=== PATIENT | female | born 1945 | race Hispanic/Latino ===

== ENCOUNTER 2017-10-11 06:27 | Inpatient (IN) | payer MEDICARE ==
[2017-10-11] MEDS ORDERED: PROVENTIL IH ONE ×2 (08:02→08:03)
[2017-10-11] MEDS ORDERED: ATROVENT IH ONE (08:02)
[2017-10-11 08:05] LABS: Basophils % (Auto) 0.7 % (0.0-1.8); Eosinophils % (Auto) 1.1 % (0.0-4.3); Hemoglobin 9.1 gm/dl (10.1-14.3); Mean Corpuscular HGB Conc 33 % (30-34); Mean Corpuscular Volume 79 fl (79-97); Platelet Count 132 K/mm3 (140-440); Red Blood Count 3.53 M/mm3 (3.65-5.03); Red Cell Distribution Width 16.1 % (13.2-15.2); White Blood Count 8.4 K/mm3 (4.5-11.0)
[2017-10-11 08:08] LABS: Mean Corpuscular Hemoglobin 26 pg (28-32)
[2017-10-11 08:15] LABS: INR 0.99 (0.87-1.13)
[2017-10-11 08:16] LABS: Partial Thromboplastin Time 24.1 Sec. (24.2-36.6)
[2017-10-11 08:20] LABS: Albumin 2.7 g/dL (3.9-5); Albumin/Globulin Ratio 0.9 %; Bilirubin,Total 0.3 mg/dL (0.1-1.2); Calcium 7.9 mg/dL (8.4-10.2); Chloride 99.3 mmol/L (98-107); Potassium 4.7 mmol/L (3.6-5.0); Total Protein 5.7 g/dL (6.3-8.2)
[2017-10-11] MEDS ORDERED: MAGNESIUM SULFATE 2GM/50ML 2 GM/50 ML BAG IV ONE (08:21)
--- NOTE | 2017-10-11 08:26 | XRay Report ---
AP CHEST: HISTORY: Short of breath Compared to 09/23/17. CABG changes are again noted. Borderline heart size and pulmonary vascularity are unchanged. The lungs are clear. The bony structures are grossly intact. IMPRESSION: No acute cardiopulmonary process. No change since 09/23/17.
[2017-10-11 08:46] LABS: Creatine Kinase MB 1.6 ng/mL (0.0-4.0)
--- NOTE | 2017-10-11 10:01 | Emergency Department Report ---
ED Shortness of Breath HPI - General Chief Complaint: Dyspnea/Respdistress Stated Complaint: LEENA Time Seen by Provider: 10/11/17 07:41 Source: patient, family, old records reviewed Mode of arrival: Wheelchair Limitations: Physical Limitation - History of Present Illness Initial Comments: 72-year-old female with a past medical history COPD dependent on 2 L of oxygen, asthma, diabetes, CHF, hypertension, CAD with history of CABG and stents presents to the hospital complaints of shortness of breath that acutely worsened at 5 AM. Patient has had generalized weakness and fatigue for several days. Occasional dry cough reported without fever. Patient had intermittent left-sided chest pain without aggravating or alleviating factors. the numbness or edema reported. Previous medical records reviewed. Patient was admitted here September 23 until September 27 for acute COPD exacerbation. She had elevated d-dimer but had a negative V/Q exam. Patient states she has been compliant with her medication. Echo performed 09/23/2017 shows EF of 55-60% with LVH and mild evidence of pulmonary hypertension - Related Data Home Medications Medication Instructions Recorded Confirmed Last Taken Insulin Glargine,Hum.rec.anlog 15 units SQ QHS 09/23/15 09/23/17 11/13/15 22:00 [Lantus Solostar] 7 units Carvedilol 25 mg PO Q12HR 09/23/17 09/23/17 Unknown Furosemide [Lasix TAB] 40 mg PO BID 09/23/17 09/23/17 Unknown Insulin Glargine [Lantus VIAL] 15 unit SC QAM 09/23/17 09/23/17 Unknown Lovastatin [Altoprev] 40 mg PO QPM 09/23/17 09/23/17 Unknown Previous Rx's Medication Instructions Recorded Last Taken Type ALBUTEROL NEB's [Proventil 0.083% 2.5 mg IH Q3HRT PRN #30 day 09/27/17 Unknown Rx NEBS] ALPRAZolam [Xanax TAB] 0.25 mg PO Q12HR PRN #30 tablet 09/27/17 Unknown Rx Acetaminophen [Acetaminophen TAB] 325 mg PO Q4H PRN #30 tablet 09/27/17 Unknown Rx Arformoterol Nebu [Brovana Nebu] 15 mcg IH Q12HRT #30 day 09/27/17 Unknown Rx Aspirin 81 mg PO QDAY #30 tab.chew 09/27/17 Unknown Rx Budesonide [Pulmicort Respules] 0.5 mg IH Q12HRT #30 nebu 09/27/17 Unknown Rx Clopidogrel [Plavix] 75 mg PO QDAY #30 tablet 09/27/17 Unknown Rx HYDROcodone/APAP 5-325 [[place] 1 each PO Q4H PRN #30 tablet 09/27/17 Unknown Rx 5-325 mg TAB] ISOSORBIDE MONOnitrate [Imdur ER] 30 mg PO DAILY #30 09/27/17 Unknown Rx Levofloxacin [Levaquin TAB] 750 mg PO Q48H #4 dose 09/27/17 Unknown Rx predniSONE [Deltasone] 1 dose PO QDAY #30 day 09/27/17 Unknown Rx Allergies Allergy/AdvReac Type Severity Reaction Status Date / Time atorvastatin calcium AdvReac Unknown Verified 09/23/17 18:55 [From Lipitor] ofloxacin [From Floxin] AdvReac Unknown Verified 09/23/17 18:55 ED Review of Systems ROS: Stated complaint: LEENA Other details as noted in HPI Comment: All other systems reviewed and negative Other: Constitutional: No fevers chills Eyes: No eye pain visual changes ENT: No ear pain or throat pain Neck: Denies pain Respiratory: As per HPI Cardiovascular: Denies chest pain, palpitations, syncope GI: Denies abdominal pain, nausea, vomiting, diarrhea, : Denies dysuria Musculoskeletal: Denies back pain, joint swelling Skin: Denies rash, lesions, erythema Neurologic: Denies headache, numbness, weakness Psychiatric: Denies suicidal ideation, hallucinations ED Past Medical Hx - Past Medical History Previous Medical History?: Yes Hx Hypertension: Yes (FOR 15 YRS, DR. Rodrick LEE- PCP) Hx Heart Attack/AMI: Yes (IN 1996and 08/2017 stend *2) Hx Diabetes: Yes (FOR 20+ YRS) Hx Asthma: Yes (NO INHALERS) Hx HIV: No - Surgical History Past Surgical History?: Yes Hx Open Heart Surgery: Yes (CABG [place] 1996) Hx Breast Surgery: Yes (LEFT BREAST STEREOTACTIC BX 09-08-15) - Social History Smoking Status: Never Smoker Substance Use Type: None - Medications Home Medications: Home Medications Medication Instructions Recorded Confirmed Last Taken Type Insulin Glargine,Hum.rec.anlog 15 units SQ QHS 09/23/15 09/23/17 11/13/15 22:00 History [Lantus Solostar] 7 units Carvedilol 25 mg PO Q12HR 09/23/17 09/23/17 Unknown History Furosemide [Lasix TAB] 40 mg PO BID 09/23/17 09/23/17 Unknown History Insulin Glargine [Lantus VIAL] 15 unit SC QAM 09/23/17 09/23/17 Unknown History Lovastatin [Altoprev] 40 mg PO QPM 09/23/17 09/23/17 Unknown History ALBUTEROL NEB's [Proventil 0.083% 2.5 mg IH Q3HRT PRN #30 day 09/27/17 Unknown Rx NEBS] ALPRAZolam [Xanax TAB] 0.25 mg PO Q12HR PRN #30 tablet 09/27/17 Unknown Rx Acetaminophen [Acetaminophen TAB] 325 mg PO Q4H PRN #30 tablet 09/27/17 Unknown Rx Arformoterol Nebu [Brovana Nebu] 15 mcg IH Q12HRT #30 day 09/27/17 Unknown Rx Aspirin 81 mg PO QDAY #30 tab.chew 09/27/17 Unknown Rx Budesonide [Pulmicort Respules] 0.5 mg IH Q12HRT #30 nebu 09/27/17 Unknown Rx Clopidogrel [Plavix] 75 mg PO QDAY #30 tablet 09/27/17 Unknown Rx HYDROcodone/APAP 5-325 [[place] 1 each PO Q4H PRN #30 tablet 09/27/17 Unknown Rx 5-325 mg TAB] ISOSORBIDE MONOnitrate [Imdur ER] 30 mg PO DAILY #30 09/27/17 09/23/17 Unknown Rx Levofloxacin [Levaquin TAB] 750 mg PO Q48H #4 dose 09/27/17 Unknown Rx predniSONE [Deltasone] 1 dose PO QDAY #30 day 09/27/17 Unknown Rx ED Physical Exam - General Limitations: Physical Limitation - Other Other exam information: General: No limitations, patient is alert in no acute distress Head exam: Atraumatic, normocephalic Eyes exam: Normal appearance ENT: Moist mucous membrane, normal oropharynx Neck exam: Normal inspection, full range of motion, no meningismus nontender Respiratory exam: Tachypnea, accessory muscle use, diminished breath sounds without crackles or wheezing Cardiovascular: Normal rate and rhythm Abdomen: Soft, nondistended, and nontender, with normal bowel sounds, no rebound, or guarding Extremity: Full range of motion normal inspection no deformity, no calf tenderness or edema Back: Normal Inspection, full range of motion, no tenderness Neurologic: Alert, oriented x3, cranial nerves intact, no motor or sensory deficit Psychiatric: normal affect, normal mood Skin: Warm, dry, intact ED Course Vital Signs 10/11/17 10/11/17 06:45 09:29 Temperature 99.4 F Pulse Rate 75 Respiratory 22 22 Rate Blood Pressure 114/72 O2 Sat by Pulse 99 96 Oximetry ED Medical Decision Making - Lab Data Result diagrams: 10/11/17 07:45 10/11/17 07:45 Lab Results 10/11/17 10/11/17 10/11/17 Range/Units 07:45 07:45 07:45 WBC 8.4 (4.5-11.0) K/mm3 RBC 3.53 L (3.65-5.03) M/mm3 Hgb 9.1 L (10.1-14.3) gm/dl Hct 28.0 L (30.3-42.9) % MCV 79 (79-97) fl MCH 26 L (28-32) pg MCHC 33 (30-34) % RDW 16.1 H (13.2-15.2) % Plt Count 132 L (140-440) K/mm3 Lymph % (Auto) 5.6 L (13.4-35.0) % [place] % (Auto) 6.4 (0.0-7.3) % Eos % (Auto) 1.1 (0.0-4.3) % Baso % (Auto) 0.7 (0.0-1.8) % Lymph # 0.5 L (1.2-5.4) K/mm3 [place] # 0.5 (0.0-0.8) K/mm3 Eos # 0.1 (0.0-0.4) K/mm3 Baso # 0.1 (0.0-0.1) K/mm3 Seg Neutrophils % 86.2 H (40.0-70.0) % Seg Neutrophils # 7.2 (1.8-7.7) K/mm3 PT 13.6 (12.2-14.9) Sec. INR 0.99 (0.87-1.13) APTT 24.1 L (24.2-36.6) Sec. Sodium 140 (137-145) mmol/L Potassium 4.7 (3.6-5.0) mmol/L Chloride 99.3 (98-107) mmol/L Carbon Dioxide 26 (22-30) mmol/L Anion Gap 19 mmol/L BUN 24 H (7-17) mg/dL Creatinine 1.6 H (0.7-1.2) mg/dL Estimated GFR 32 ml/min BUN/Creatinine Ratio 15 % Glucose 228 H (65-100) mg/dL Calcium 7.9 L (8.4-10.2) mg/dL Total Bilirubin 0.30 (0.1-1.2) mg/dL AST 10 (5-40) units/L ALT 9 (7-56) units/L Alkaline Phosphatase 110 (35-129) units/L Total Creatine Kinase (30-135) units/L CK-MB (CK-2) (0.0-4.0) ng/mL CK-MB (CK-2) Rel Index (0-4) Troponin T 0.031 H (0.00-0.029) ng/mL NT-Pro-B Natriuret Pep (0-900) pg/mL Total Protein 5.7 L (6.3-8.2) g/dL Albumin 2.7 L (3.9-5) g/dL Albumin/Globulin Ratio 0.9 % Triglycerides 139 (2-149) mg/dL Cholesterol 166 (50-199) mg/dL LDL Cholesterol Direct 101 (50-130) mg/dL HDL Cholesterol 38 L (40-59) mg/dL Cholesterol/HDL Ratio 4.36 % 10/11/17 10/11/17 Range/Units 07:45 07:45 WBC (4.5-11.0) K/mm3 RBC (3.65-5.03) M/mm3 Hgb (10.1-14.3) gm/dl Hct (30.3-42.9) % MCV (79-97) fl MCH (28-32) pg MCHC (30-34) % RDW (13.2-15.2) % Plt Count (140-440) K/mm3 Lymph % (Auto) (13.4-35.0) % [place] % (Auto) (0.0-7.3) % Eos % (Auto) (0.0-4.3) % Baso % (Auto) (0.0-1.8) % Lymph # (1.2-5.4) K/mm3 [place] # (0.0-0.8) K/mm3 Eos # (0.0-0.4) K/mm3 Baso # (0.0-0.1) K/mm3 Seg Neutrophils % (40.0-70.0) % Seg Neutrophils # (1.8-7.7) K/mm3 PT (12.2-14.9) Sec. INR (0.87-1.13) APTT (24.2-36.6) Sec. Sodium (137-145) mmol/L Potassium (3.6-5.0) mmol/L Chloride (98-107) mmol/L Carbon Dioxide (22-30) mmol/L Anion Gap mmol/L BUN (7-17) mg/dL Creatinine (0.7-1.2) mg/dL Estimated GFR ml/min BUN/Creatinine Ratio % Glucose (65-100) mg/dL Calcium (8.4-10.2) mg/dL Total Bilirubin (0.1-1.2) mg/dL AST (5-40) units/L ALT (7-56) units/L Alkaline Phosphatase (35-129) units/L Total Creatine Kinase 34 (30-135) units/L CK-MB (CK-2) 1.6 (0.0-4.0) ng/mL CK-MB (CK-2) Rel Index 4.7 H (0-4) Troponin T (0.00-0.029) ng/mL NT-Pro-B Natriuret Pep 48334 H (0-900) pg/mL Total Protein (6.3-8.2) g/dL Albumin (3.9-5) g/dL Albumin/Globulin Ratio % Triglycerides (2-149) mg/dL Cholesterol (50-199) mg/dL LDL Cholesterol Direct (50-130) mg/dL HDL Cholesterol (40-59) mg/dL Cholesterol/HDL Ratio % - EKG Data -: EKG Interpreted by Me EKG shows normal: sinus rhythm, axis (53), QRS complexes (92), ST-T waves (lat t wave inv) Rate: normal (69) - EKG Data When compared to previous EKG there are: changes noted (compared to 09/23/17 ant t waves now improved) - Radiology Data Radiology results: report reviewed (cxr: naf compared to 09/23/17) - Medical Decision Making Patient would be admitted to the hospital for further treatment of acute COPD exacerbation. Creatinine stable. Troponin mildly elevated today. - Differential Diagnosis CHF, PE, bronchitis, pneumonia, unstable angina, COPD, asthma Critical Care Time: No Critical care attestation.: If time is entered above; I have spent that time in minutes in the direct care of this critically ill patient, excluding procedure time. ED Disposition Clinical Impression: COPD exacerbation, Chronic renal insufficiency, Oxygen dependent, Hx of CABG, Hx of heart artery stent, Elevated brain natriuretic peptide (BNP) level, Elevated troponin Disposition: DC09 OP ADMIT IP TO THIS HOSP Is pt being admited?: Yes Condition: Stable Time of Disposition: 10:02 (Ion/hosp/Dr Vidal)
--- NOTE | 2017-10-11 10:42 | History and Physical Report ---
<CHRISTINE REEDER - Last Filed: 10/11/17 15:09> History of Present Illness Date of examination: 10/11/17 Date of admission: 10/11/2017 Chief complaint: Shortness of breath History of present illness: Patient is a 72-year-old female with a past medical history COPD dependent on 2 L of oxygen, asthma, diabetes, CHF, hypertension, CAD with history of CABG and stents presents to the Emergency Department complaints of shortness of breath. Until 5 days ago patient was at her normal baseline state of health since then patient has had generalized weakness and fatigue for several days.Patient developed difficulty of breathing yesterday and she has had progressive worsening of shortness of breath. This morning around 5:Am while going to the bathroom, shortly thereafter, she felt like she could not catch her breath and got worried and her daughter brought her to the Emergency Department. Patient denies she has had no fevers, chills, or night sweats. No hx of recurrent pneumonia. He has no sick contact, TB exposure. Patient noncompliance with steroid and Lasix. Past History Past Medical History: CAD (CAD with history of CABG and stents), COPD ( dependent on 2 L of oxygen, ), diabetes, heart failure, hypertension, other ( asthma, ) Past Surgical History: No surgical history, Other Social history: denies: smoking, alcohol abuse Family history: hypertension Medications and Allergies Allergies Allergy/AdvReac Type Severity Reaction Status Date / Time atorvastatin calcium AdvReac Unknown Verified 09/23/17 18:55 [From Lipitor] ofloxacin [From Floxin] AdvReac Unknown Verified 09/23/17 18:55 Home Medications Medication Instructions Recorded Confirmed Last Taken Type Insulin Glargine,Hum.rec.anlog 15 units SQ QHS 09/23/15 10/11/17 11/13/15 22:00 History [Lantus Solostar] 7 units Carvedilol 25 mg PO Q12HR 09/23/17 10/11/17 Unknown History Furosemide [Lasix TAB] 40 mg PO BID 09/23/17 10/11/17 Unknown History Lovastatin [Altoprev] 40 mg PO QPM 09/23/17 10/11/17 Unknown History ALBUTEROL NEB's [Proventil 0.083% 2.5 mg IH Q3HRT PRN #30 day 09/27/17 10/11/17 Unknown Rx NEBS] ALPRAZolam [Xanax TAB] 0.25 mg PO Q12HR PRN #30 tablet 09/27/17 10/11/17 Unknown Rx Aspirin 81 mg PO QDAY #30 tab.chew 09/27/17 10/11/17 Unknown Rx Clopidogrel [Plavix] 75 mg PO QDAY #30 tablet 09/27/17 10/11/17 Unknown Rx HYDROcodone/APAP 5-325 [[place] 1 each PO Q4H PRN #30 tablet 09/27/17 10/11/17 Unknown Rx 5-325 mg TAB] ISOSORBIDE MONOnitrate [Imdur ER] 30 mg PO DAILY #30 09/27/17 10/11/17 Unknown Rx Active Meds: Active Medications Albuterol/Ipratropium (Duoneb *Not For Prn Use*) 1 ampul IH Q6HRT RIRI Enoxaparin Sodium (Lovenox) 40 mg SUB-Q QDAY RIRI Methylprednisolone Sodium Succinate (Solu-Medrol) 80 mg IV Q8HR RIRI Review of Systems Constitutional: fatigue, weakness, malaise, no weight loss, no weight gain, no fever, no chills Ears, nose, mouth and throat: no nasal congestion, no nasal discharge, no sinus pressure Breasts: no swelling, no mass Cardiovascular: dyspnea on exertion, no syncope, no lightheadedness, no shortness of breath Respiratory: shortness of breath, dyspnea on exertion, no excessive sputum, no hemoptysis Gastrointestinal: no constipation, no change in bowel habits, no hematemesis Genitourinary Female: no incomplete emptying, no urge incontinence, no mixed incontinence Musculoskeletal: no neck pain, no shooting arm pain, no low back pain Integumentary: no redness, no wounds, no jaundice Neurological: no seizures, no syncope, no ataxia Psychiatric: no hypersomnia, no change in appetite, no suicidal ideation Endocrine: no polyphagia, no polydipsia, no nocturia, no flushing Hematologic/Lymphatic: no easy bruising, no easy bleeding Allergic/Immunologic: no urticaria, no allergic rhinitis Exam - Constitutional Vitals: Temp Pulse Resp BP Pulse Ox 99.4 F 75 22 114/72 96 10/11/17 06:45 10/11/17 06:45 10/11/17 09:29 10/11/17 06:45 10/11/17 09:29 General appearance: Present: mild distress, other (alert but very lethargic) - EENT Eyes: Present: PERRL ENT: hearing intact - Neck Neck: Present: supple - Respiratory Respiratory effort: normal Respiratory: bilateral: wheezing - Cardiovascular Rhythm: regular Heart Sounds: Present: S1 & S2 - Abdominal General gastrointestinal: Present: soft, non-tender Results - Labs CBC & Chem 7: 10/11/17 07:45 10/11/17 07:45 Labs: Laboratory Last Values WBC 8.4 K/mm3 (4.5-11.0) 10/11/17 07:45 RBC 3.53 M/mm3 (3.65-5.03) L 10/11/17 07:45 Hgb 9.1 gm/dl (10.1-14.3) L 10/11/17 07:45 Hct 28.0 % (30.3-42.9) L 10/11/17 07:45 MCV 79 fl (79-97) 10/11/17 07:45 MCH 26 pg (28-32) L 10/11/17 07:45 MCHC 33 % (30-34) 10/11/17 07:45 RDW 16.1 % (13.2-15.2) H 10/11/17 07:45 Plt Count 132 K/mm3 (140-440) L 10/11/17 07:45 Lymph % (Auto) 5.6 % (13.4-35.0) L 10/11/17 07:45 [place] % (Auto) 6.4 % (0.0-7.3) 10/11/17 07:45 Eos % (Auto) 1.1 % (0.0-4.3) 10/11/17 07:45 Baso % (Auto) 0.7 % (0.0-1.8) 10/11/17 07:45 Lymph # 0.5 K/mm3 (1.2-5.4) L 10/11/17 07:45 [place] # 0.5 K/mm3 (0.0-0.8) 10/11/17 07:45 Eos # 0.1 K/mm3 (0.0-0.4) 10/11/17 07:45 Baso # 0.1 K/mm3 (0.0-0.1) 10/11/17 07:45 Seg Neutrophils % 86.2 % (40.0-70.0) H 10/11/17 07:45 Seg Neutrophils # 7.2 K/mm3 (1.8-7.7) 10/11/17 07:45 PT 13.6 Sec. (12.2-14.9) 10/11/17 07:45 INR 0.99 (0.87-1.13) 10/11/17 07:45 APTT 24.1 Sec. (24.2-36.6) L 10/11/17 07:45 Sodium 140 mmol/L (137-145) 10/11/17 07:45 Potassium 4.7 mmol/L (3.6-5.0) 10/11/17 07:45 Chloride 99.3 mmol/L (98-107) 10/11/17 07:45 Carbon Dioxide 26 mmol/L (22-30) 10/11/17 07:45 Anion Gap 19 mmol/L 10/11/17 07:45 BUN 24 mg/dL (7-17) H 10/11/17 07:45 Creatinine 1.6 mg/dL (0.7-1.2) H 10/11/17 07:45 Estimated GFR 32 ml/min 10/11/17 07:45 BUN/Creatinine Ratio 15 % 10/11/17 07:45 Glucose 228 mg/dL (65-100) H 10/11/17 07:45 Calcium 7.9 mg/dL (8.4-10.2) L 10/11/17 07:45 Total Bilirubin 0.30 mg/dL (0.1-1.2) 10/11/17 07:45 AST 10 units/L (5-40) 10/11/17 07:45 ALT 9 units/L (7-56) 10/11/17 07:45 Alkaline Phosphatase 110 units/L (35-129) 10/11/17 07:45 Total Creatine Kinase 34 units/L (30-135) 10/11/17 07:45 CK-MB (CK-2) 1.6 ng/mL (0.0-4.0) 10/11/17 07:45 CK-MB (CK-2) Rel Index 4.7 (0-4) H 10/11/17 07:45 Troponin T 0.031 ng/mL (0.00-0.029) H 10/11/17 07:45 NT-Pro-B Natriuret Pep 88932 pg/mL (0-900) H 10/11/17 07:45 Total Protein 5.7 g/dL (6.3-8.2) L 10/11/17 07:45 Albumin 2.7 g/dL (3.9-5) L 10/11/17 07:45 Albumin/Globulin Ratio 0.9 % 10/11/17 07:45 Triglycerides 139 mg/dL (2-149) 10/11/17 07:45 Cholesterol 166 mg/dL (50-199) 10/11/17 07:45 LDL Cholesterol Direct 101 mg/dL (50-130) 10/11/17 07:45 HDL Cholesterol 38 mg/dL (40-59) L 10/11/17 07:45 Cholesterol/HDL Ratio 4.36 % 10/11/17 07:45 - Imaging and Cardiology Chest x-ray: image reviewed ([email or web address]) Assessment and Plan Assessment and plan: Patient is a 72-year-old female with a past medical history COPD dependent on 2 L of oxygen, asthma, diabetes, CHF, hypertension, CAD with history of CABG and stents presents to the Emergency Department complaints of shortness of breath. Acute on chronic respiratory failure with hypoxia Patient oxygen saturation improved with 2LNC; currently SPO2 98%. No acute respiratory distress noted. Aggressive Nebulizers/Inhalers ABG when necessary Oxygen supplement Supportive care Elevated troponin Echocardiogram performed 09/23/2017 shows EF of 55-60% with LVH and mild evidence of pulmonary hypertension Closely monitor electrolytes Cardiology evaluation Acute COPD exacerbation Continue on Duoneb every 6 hours Started IV steroid Solumedrol Initiated empiric IV azithromycin Oxygen as necessary Hypertensive urgency Continue home antihypertensive medications Closely monitor blood pressure CKD Stage III Patient serum creatinine is 1.6; which is her baseline IV fluid hydration Repeat BMP Chronic anemia Stable at this time, transfusion related Closely monitor H&H Noncompliance Patient noncompliance with her steroid and Lasix. Counseled about the importance of adherence to medication and treatment Moderate malnutrition Nutrition consult DVT prophylaxis Heparin Advance Directives: Yes VTE prophylaxis?: Chemical Contraindication Mechanical VTE Prophylaxis: Treatment Not Indicated Plan of care discussed with patient/family: Yes <YENNI JEFFERSON Last Filed: 10/11/17 15:32> History of Present Illness Date of admission: 10/11/17 10:11 Medications and Allergies Active Meds: Active Medications Albuterol (Proventil) 2.5 mg IH Q4HRT PRN PRN Reason: Shortness Of Breath Albuterol/Ipratropium (Duoneb *Not For Prn Use*) 1 ampul IH Q6HRT RIRI Aspirin (Baby Aspirin) 81 mg PO QDAY RIRI Carvedilol (Coreg) 25 mg PO Q12HR RIRI Clopidogrel Bisulfate (Plavix) 75 mg PO QDAY RIRI Dextrose (D50w (25gm) Syringe) 50 ml IV PRN PRN PRN Reason: Hypoglycemia Enoxaparin Sodium (Lovenox) 30 mg SUB-Q QDAY RIRI Furosemide (Lasix) 40 mg PO BID [facility] Azithromycin 500 mg/ Sodium (Chloride) 250 mls @ 250 mls/hr IV Q24HR RIRI Sodium Chloride (Nacl 0.9% 1000 Ml) 1,000 mls @ 100 mls/hr IV DIRECT RIRI Sodium Chloride (Nacl 0.9% 1000 Ml) 1,000 mls @ 75 mls/hr IV DIRECT RIRI Insulin Aspart (Novolog) 0 units SUB-Q AC RIRI PRN Reason: Protocol Insulin Aspart (Novolog) 0 units SUB-Q QHS RIRI PRN Reason: Protocol Insulin Detemir (Levemir) 15 units SUB-Q QHS [facility] Isosorbide Mononitrate (Imdur) 30 mg PO DAILY [facility] Methylprednisolone Sodium Succinate (Solu-Medrol) 80 mg IV Q8H [facility] Miscellaneous Medication (Lovastatin [Altoprev]) 40 mg PO QPM [facility] Exam - Constitutional Vitals: Temp Pulse Resp BP Pulse Ox 98.6 F 75 20 125/60 99 10/11/17 14:00 10/11/17 14:00 10/11/17 14:00 10/11/17 14:00 10/11/17 14:00 Results - Labs CBC & Chem 7: 10/11/17 07:45 10/11/17 07:45 Labs: Laboratory Last Values WBC 8.4 K/mm3 (4.5-11.0) 10/11/17 07:45 RBC 3.53 M/mm3 (3.65-5.03) L 10/11/17 07:45 Hgb 9.1 gm/dl (10.1-14.3) L 10/11/17 07:45 Hct 28.0 % (30.3-42.9) L 10/11/17 07:45 MCV 79 fl (79-97) 10/11/17 07:45 MCH 26 pg (28-32) L 10/11/17 07:45 MCHC 33 % (30-34) 10/11/17 07:45 RDW 16.1 % (13.2-15.2) H 10/11/17 07:45 Plt Count 132 K/mm3 (140-440) L 10/11/17 07:45 Lymph % (Auto) 5.6 % (13.4-35.0) L 10/11/17 07:45 [place] % (Auto) 6.4 % (0.0-7.3) 10/11/17 07:45 Eos % (Auto) 1.1 % (0.0-4.3) 10/11/17 07:45 Baso % (Auto) 0.7 % (0.0-1.8) 10/11/17 07:45 Lymph # 0.5 K/mm3 (1.2-5.4) L 10/11/17 07:45 [place] # 0.5 K/mm3 (0.0-0.8) 10/11/17 07:45 Eos # 0.1 K/mm3 (0.0-0.4) 10/11/17 07:45 Baso # 0.1 K/mm3 (0.0-0.1) 10/11/17 07:45 Seg Neutrophils % 86.2 % (40.0-70.0) H 10/11/17 07:45 Seg Neutrophils # 7.2 K/mm3 (1.8-7.7) 10/11/17 07:45 PT 13.6 Sec. (12.2-14.9) 10/11/17 07:45 INR 0.99 (0.87-1.13) 10/11/17 07:45 APTT 24.1 Sec. (24.2-36.6) L 10/11/17 07:45 Sodium 140 mmol/L (137-145) 10/11/17 07:45 Potassium 4.7 mmol/L (3.6-5.0) 10/11/17 07:45 Chloride 99.3 mmol/L (98-107) 10/11/17 07:45 Carbon Dioxide 26 mmol/L (22-30) 10/11/17 07:45 Anion Gap 19 mmol/L 10/11/17 07:45 BUN 24 mg/dL (7-17) H 10/11/17 07:45 Creatinine 1.6 mg/dL (0.7-1.2) H 10/11/17 07:45 Estimated GFR 32 ml/min 10/11/17 07:45 BUN/Creatinine Ratio 15 % 10/11/17 07:45 Glucose 228 mg/dL (65-100) H 10/11/17 07:45 POC Glucose 351 (70-105) H 10/11/17 14:36 Calcium 7.9 mg/dL (8.4-10.2) L 10/11/17 07:45 Total Bilirubin 0.30 mg/dL (0.1-1.2) 10/11/17 07:45 AST 10 units/L (5-40) 10/11/17 07:45 ALT 9 units/L (7-56) 10/11/17 07:45 Alkaline Phosphatase 110 units/L (35-129) 10/11/17 07:45 Total Creatine Kinase 34 units/L (30-135) 10/11/17 07:45 CK-MB (CK-2) 1.6 ng/mL (0.0-4.0) 10/11/17 07:45 CK-MB (CK-2) Rel Index 4.7 (0-4) H 10/11/17 07:45 Troponin T 0.014 ng/mL (0.00-0.029) 10/11/17 13:08 NT-Pro-B Natriuret Pep 82692 pg/mL (0-900) H 10/11/17 07:45 Total Protein 5.7 g/dL (6.3-8.2) L 10/11/17 07:45 Albumin 2.7 g/dL (3.9-5) L 10/11/17 07:45 Albumin/Globulin Ratio 0.9 % 10/11/17 07:45 Triglycerides 139 mg/dL (2-149) 10/11/17 07:45 Cholesterol 166 mg/dL (50-199) 10/11/17 07:45 LDL Cholesterol Direct 101 mg/dL (50-130) 10/11/17 07:45 HDL Cholesterol 38 mg/dL (40-59) L 10/11/17 07:45 Cholesterol/HDL Ratio 4.36 % 10/11/17 07:45 Assessment and Plan Assessment and plan: I saw and evaluated the patient. I agree with the findings and the plan of care as documented in the Nurse Practitioner's~note, with the following corrections and additions. I spoke with patient daughter at bedside, she has not taking her lasix in 4 days also. She stopped the prednisone due to high blood sugars.
[2017-10-11] MEDS ORDERED: LOVENOX SUB-Q SCH (11:00)
[2017-10-11] MEDS ORDERED: NACL 0.9% 1000 ML 1,000 ML IV SCH (11:00)
--- NOTE | 2017-10-11 12:42 | Consultation ---
History of Present Illness Consult date: 10/11/17 Consult reason: shortness of breath History of present illness: 72 year old female presenting with worsening shortness of breath that started at 5 am this morning. Daughter states that patient has not been taking her steroids due to the fact that she is concerned about her blood sugar spiking too high. Patient also has not been taking the antibiotics prescribed to her. Patient denies chest pain. Patient on home O2 at home. Patient is compliant with her DAPT. Past History Past Medical History: anemia, CAD, COPD, diabetes, hypertension, hyperlipidemia , renal failure Past Surgical History: CABG Social history: smoking Medications and Allergies Allergies Allergy/AdvReac Type Severity Reaction Status Date / Time atorvastatin calcium AdvReac Unknown Verified 09/23/17 18:55 [From Lipitor] ofloxacin [From Floxin] AdvReac Unknown Verified 09/23/17 18:55 Home Medications Medication Instructions Recorded Confirmed Last Taken Type Insulin Glargine,Hum.rec.anlog 15 units SQ QHS 09/23/15 10/11/17 11/13/15 22:00 History [Lantus Solostar] 7 units Carvedilol 25 mg PO Q12HR 09/23/17 10/11/17 Unknown History Furosemide [Lasix TAB] 40 mg PO BID 09/23/17 10/11/17 Unknown History Lovastatin [Altoprev] 40 mg PO QPM 09/23/17 10/11/17 Unknown History ALBUTEROL NEB's [Proventil 0.083% 2.5 mg IH Q3HRT PRN #30 day 09/27/17 10/11/17 Unknown Rx NEBS] ALPRAZolam [Xanax TAB] 0.25 mg PO Q12HR PRN #30 tablet 09/27/17 10/11/17 Unknown Rx Aspirin 81 mg PO QDAY #30 tab.chew 09/27/17 10/11/17 Unknown Rx Clopidogrel [Plavix] 75 mg PO QDAY #30 tablet 09/27/17 10/11/17 Unknown Rx HYDROcodone/APAP 5-325 [[place] 1 each PO Q4H PRN #30 tablet 09/27/17 10/11/17 Unknown Rx 5-325 mg TAB] ISOSORBIDE MONOnitrate [Imdur ER] 30 mg PO DAILY #30 09/27/17 10/11/17 Unknown Rx Active Meds: Active Medications Albuterol/Ipratropium (Duoneb *Not For Prn Use*) 1 ampul IH Q6HRT [facility] Enoxaparin Sodium (Lovenox) 30 mg SUB-Q QDAY [facility] Azithromycin 500 mg/ Sodium (Chloride) 250 mls @ 250 mls/hr IV Q24HR [facility] Sodium Chloride (Nacl 0.9% 1000 Ml) 1,000 mls @ 100 mls/hr IV DIRECT [facility] Methylprednisolone Sodium Succinate (Solu-Medrol) 80 mg IV Q8HR [facility] Physical Examination Vital Signs Temp Pulse Resp BP Pulse Ox 99.4 F 75 22 114/72 99 10/11/17 06:45 10/11/17 06:45 10/11/17 06:45 10/11/17 06:45 10/11/17 06:45 General appearance: mild distress HEENT: Positive: Pallor Neck: Positive: neck supple. Negative: JVD/HJR Cardiac: Positive: Reg Rate and Rhythm Lungs: Positive: Decreased Breath Sounds, Wheezes Abdomen: Positive: Soft Extremities: Absent: edema Results 10/11/17 07:45 10/11/17 07:45 Cardiac Enzymes 10/11/17 10/11/17 10/11/17 Range/Units 07:45 07:45 07:45 WBC 8.4 (4.5-11.0) K/mm3 RBC 3.53 L (3.65-5.03) M/mm3 Hgb 9.1 L (10.1-14.3) gm/dl Hct 28.0 L (30.3-42.9) % MCV 79 (79-97) fl MCH 26 L (28-32) pg MCHC 33 (30-34) % RDW 16.1 H (13.2-15.2) % Plt Count 132 L (140-440) K/mm3 Lymph % (Auto) 5.6 L (13.4-35.0) % [place] % (Auto) 6.4 (0.0-7.3) % Eos % (Auto) 1.1 (0.0-4.3) % Baso % (Auto) 0.7 (0.0-1.8) % Lymph # 0.5 L (1.2-5.4) K/mm3 [place] # 0.5 (0.0-0.8) K/mm3 Eos # 0.1 (0.0-0.4) K/mm3 Baso # 0.1 (0.0-0.1) K/mm3 Seg Neutrophils % 86.2 H (40.0-70.0) % Seg Neutrophils # 7.2 (1.8-7.7) K/mm3 PT 13.6 (12.2-14.9) Sec. INR 0.99 (0.87-1.13) APTT 24.1 L (24.2-36.6) Sec. Sodium 140 (137-145) mmol/L Potassium 4.7 (3.6-5.0) mmol/L Chloride 99.3 (98-107) mmol/L Carbon Dioxide 26 (22-30) mmol/L Anion Gap 19 mmol/L BUN 24 H (7-17) mg/dL Creatinine 1.6 H (0.7-1.2) mg/dL Estimated GFR 32 ml/min BUN/Creatinine Ratio 15 % Glucose 228 H (65-100) mg/dL Calcium 7.9 L (8.4-10.2) mg/dL Total Bilirubin 0.30 (0.1-1.2) mg/dL AST 10 (5-40) units/L ALT 9 (7-56) units/L Alkaline Phosphatase 110 (35-129) units/L Total Creatine Kinase (30-135) units/L CK-MB (CK-2) (0.0-4.0) ng/mL CK-MB (CK-2) Rel Index (0-4) Troponin T 0.031 H (0.00-0.029) ng/mL NT-Pro-B Natriuret Pep (0-900) pg/mL Total Protein 5.7 L (6.3-8.2) g/dL Albumin 2.7 L (3.9-5) g/dL Albumin/Globulin Ratio 0.9 % Triglycerides 139 (2-149) mg/dL Cholesterol 166 (50-199) mg/dL LDL Cholesterol Direct 101 (50-130) mg/dL HDL Cholesterol 38 L (40-59) mg/dL Cholesterol/HDL Ratio 4.36 % 10/11/17 10/11/17 10/11/17 Range/Units 07:45 07:45 10:12 WBC (4.5-11.0) K/mm3 RBC (3.65-5.03) M/mm3 Hgb (10.1-14.3) gm/dl Hct (30.3-42.9) % MCV (79-97) fl MCH (28-32) pg MCHC (30-34) % RDW (13.2-15.2) % Plt Count (140-440) K/mm3 Lymph % (Auto) (13.4-35.0) % [place] % (Auto) (0.0-7.3) % Eos % (Auto) (0.0-4.3) % Baso % (Auto) (0.0-1.8) % Lymph # (1.2-5.4) K/mm3 [place] # (0.0-0.8) K/mm3 Eos # (0.0-0.4) K/mm3 Baso # (0.0-0.1) K/mm3 Seg Neutrophils % (40.0-70.0) % Seg Neutrophils # (1.8-7.7) K/mm3 PT (12.2-14.9) Sec. INR (0.87-1.13) APTT (24.2-36.6) Sec. Sodium (137-145) mmol/L Potassium (3.6-5.0) mmol/L Chloride (98-107) mmol/L Carbon Dioxide (22-30) mmol/L Anion Gap mmol/L BUN (7-17) mg/dL Creatinine (0.7-1.2) mg/dL Estimated GFR ml/min BUN/Creatinine Ratio % Glucose (65-100) mg/dL Calcium (8.4-10.2) mg/dL Total Bilirubin (0.1-1.2) mg/dL AST (5-40) units/L ALT (7-56) units/L Alkaline Phosphatase (35-129) units/L Total Creatine Kinase 34 (30-135) units/L CK-MB (CK-2) 1.6 (0.0-4.0) ng/mL CK-MB (CK-2) Rel Index 4.7 H (0-4) Troponin T 0.028 (0.00-0.029) ng/mL NT-Pro-B Natriuret Pep 48179 H (0-900) pg/mL Total Protein (6.3-8.2) g/dL Albumin (3.9-5) g/dL Albumin/Globulin Ratio % Triglycerides (2-149) mg/dL Cholesterol (50-199) mg/dL LDL Cholesterol Direct (50-130) mg/dL HDL Cholesterol (40-59) mg/dL Cholesterol/HDL Ratio % Coagulation 10/11/17 Range/Units 07:45 PT 13.6 (12.2-14.9) Sec. INR 0.99 (0.87-1.13) APTT 24.1 L (24.2-36.6) Sec. Lipids 10/11/17 Range/Units 07:45 Triglycerides 139 (2-149) mg/dL Cholesterol 166 (50-199) mg/dL HDL Cholesterol 38 L (40-59) mg/dL Cholesterol/HDL Ratio 4.36 % CBC 10/11/17 Range/Units 07:45 WBC 8.4 (4.5-11.0) K/mm3 RBC 3.53 L (3.65-5.03) M/mm3 Hgb 9.1 L (10.1-14.3) gm/dl Hct 28.0 L (30.3-42.9) % Plt Count 132 L (140-440) K/mm3 Lymph # 0.5 L (1.2-5.4) K/mm3 [place] # 0.5 (0.0-0.8) K/mm3 Eos # 0.1 (0.0-0.4) K/mm3 Baso # 0.1 (0.0-0.1) K/mm3 Comprehensive Metabolic Panel 10/11/17 Range/Units 07:45 Sodium 140 (137-145) mmol/L Potassium 4.7 (3.6-5.0) mmol/L Chloride 99.3 (98-107) mmol/L Carbon Dioxide 26 (22-30) mmol/L BUN 24 H (7-17) mg/dL Creatinine 1.6 H (0.7-1.2) mg/dL Glucose 228 H (65-100) mg/dL Calcium 7.9 L (8.4-10.2) mg/dL AST 10 (5-40) units/L ALT 9 (7-56) units/L Alkaline Phosphatase 110 (35-129) units/L Total Protein 5.7 L (6.3-8.2) g/dL Albumin 2.7 L (3.9-5) g/dL Assessment and Plan Acute Hypoxic respiratory failure Exam findings are consistent with COPD exacerbation Patient has chronically elevated NT-proBNP secondary to renal failure and RV strain (no pulmonary edema on CXR) Non-compliance with Abx, steroids and inhalers Hx of CAD with 3v CABG LHC at [facility] 08/2017: Patent left internal mammary artery graft to the LAD. Patent saphenous vein graft to diagonal branch of LAD. Occluded saphenous vein graft to the circumflex. s/p drug-eluting stent deployment for severe in-stent restenosis of the mid right coronary. s/p circumflex vessel drug-eluting stent to de alex mid circumflex stenosis. Left ventricular ejection fraction 50-55% on echocardiogram. Chronic renal failure Hypertension Diabetes mellitus Tobacco abuse Recommendations: Advised smoking cessation. Continue medical therapy for coronary artery disease including aspirin and Plavix therapy without interruption. Pulmonary evaluation and management
[2017-10-11] MEDS ORDERED: D50W (25GM) Syringe IV PRN (14:03)
[2017-10-11] MEDS ORDERED: PROVENTIL IH PRN (14:04)
[2017-10-11] MEDS ORDERED: NOVOLOG SUB-Q SCH ×2 (16:30→22:00)
[2017-10-11] MEDS: DUONEB *Not for PRN Use IH SCH ×2 (16:54→19:22)
[2017-10-11] MEDS ORDERED: NON-FORMULARY (Lovastatin [Altoprev] 40 MG) PO SCH (18:00)
[2017-10-11] MEDS ORDERED: D50W (25GM) Vial IV PRN (19:57)
[2017-10-11] MEDS ORDERED: NOVOLOG SUB-Q ONE (20:02)
[2017-10-11] MEDS ORDERED: NON-FORMULARY (Insulin Glargine,Hum.Rec.Anlog [Lantus Solostar] 15 UNITS) SQ SCH (22:00)
[2017-10-11] MEDS ORDERED: LEVEMIR SUB-Q SCH ×2 (22:00)
[2017-10-11] MEDS: COREG PO SCH (23:22)
[2017-10-11] MEDS: LASIX PO SCH (23:22)
[2017-10-11] MEDS: NOVOLOG SUB-Q SCH (23:23)
[2017-10-12] MEDS: NACL 0.9% 1000 ML 1,000 ML IV SCH ×2 (01:19→12:49)
[2017-10-12] MEDS: DUONEB *Not for PRN Use IH SCH ×4 (01:31→20:43)
[2017-10-12] MEDS: NOVOLOG SUB-Q SCH ×4 (08:05→21:19)
[2017-10-12] MEDS: LASIX PO SCH ×2 (09:13→21:20)
[2017-10-12] MEDS: IMDUR PO SCH (09:13)
[2017-10-12] MEDS: PLAVIX PO SCH (09:13)
[2017-10-12] MEDS: COREG PO SCH ×2 (09:14→21:19)
[2017-10-12] MEDS: LOVENOX SUB-Q SCH (09:16)
[2017-10-12] MEDS: BABY ASPIRIN PO SCH (09:16)
[2017-10-12] MEDS: LEVEMIR SUB-Q SCH ×2 (09:57→21:20)
[2017-10-12] MEDS ORDERED: LOVENOX SUB-Q SCH (10:00)
[2017-10-12] MEDS ORDERED: LEVAQUIN 750MG/150ML 750 MG/150 ML BAG IV SCH (10:00)
--- NOTE | 2017-10-12 11:48 | Progress Note ---
Assessment and Plan Acute Hypoxic respiratory failure Exam findings are consistent with COPD exacerbation Patient has chronically elevated NT-proBNP secondary to renal failure and RV strain (no pulmonary edema on CXR) Non-compliance with Abx, steroids and inhalers Hx of CAD with 3v CABG LHC at [facility] 08/2017: Patent left internal mammary artery graft to the LAD. Patent saphenous vein graft to diagonal branch of LAD. Occluded saphenous vein graft to the circumflex. s/p drug-eluting stent deployment for severe in-stent restenosis of the mid right coronary. s/p circumflex vessel drug-eluting stent to de alex mid circumflex stenosis. Left ventricular ejection fraction 50-55% on echocardiogram. Chronic renal failure Hypertension Diabetes mellitus Tobacco abuse Recommendations: Advised smoking cessation. Continue medical therapy for coronary artery disease including aspirin and Plavix therapy without interruption. Pulmonary evaluation and management Subjective Date of service: 10/12/17 Interval history: Continues to have dyspnea. No chest pain Objective Vital Signs Temp Pulse Pulse Resp Resp BP BP 10/12/17 09:14 75 150/46 10/12/17 09:13 75 150/46 10/12/17 08:14 77 10/12/17 08:13 98.0 F 70 18 142/37 10/12/17 06:00 85 10/12/17 03:47 97.8 F 70 18 159/47 10/12/17 01:42 63 18 10/12/17 01:31 60 18 10/12/17 00:42 97.4 F L 60 18 179/60 10/11/17 23:22 78 140/54 10/11/17 21:00 97.9 F 78 18 140/54 10/11/17 20:30 82 10/11/17 19:48 69 24 158/58 10/11/17 19:32 81 20 10/11/17 19:22 79 20 10/11/17 17:31 99.6 F 66 20 152/53 10/11/17 16:30 62 19 145/46 10/11/17 16:20 73 16 145/46 10/11/17 16:10 71 20 145/46 10/11/17 16:00 74 20 113/50 10/11/17 15:50 74 17 113/50 10/11/17 15:46 74 21 113/50 10/11/17 15:30 81 15 113/50 10/11/17 15:16 81 14 113/50 10/11/17 15:00 78 21 113/50 10/11/17 14:46 79 15 120/60 10/11/17 14:30 79 17 120/60 10/11/17 14:16 78 15 120/60 10/11/17 14:00 98.6 F 76 14 120/60 125/60 10/11/17 13:46 75 13 130/64 10/11/17 13:30 78 20 130/64 10/11/17 13:16 76 15 130/64 10/11/17 13:00 61 11 L 127/61 10/11/17 12:46 66 13 127/61 10/11/17 12:30 72 14 137/40 10/11/17 12:16 74 20 137/40 10/11/17 12:00 82 18 137/40 Pulse Ox 10/12/17 09:14 10/12/17 09:13 10/12/17 08:14 95 10/12/17 08:13 95 10/12/17 06:00 10/12/17 03:47 96 10/12/17 01:42 10/12/17 01:31 10/12/17 00:42 96 10/11/17 23:22 10/11/17 21:00 96 10/11/17 20:30 10/11/17 19:48 94 10/11/17 19:32 10/11/17 19:22 95 10/11/17 17:31 95 10/11/17 16:30 94 10/11/17 16:20 93 10/11/17 16:10 95 10/11/17 16:00 96 10/11/17 15:50 97 10/11/17 15:46 95 10/11/17 15:30 94 10/11/17 15:16 95 10/11/17 15:00 95 10/11/17 14:46 96 10/11/17 14:30 96 10/11/17 14:16 96 10/11/17 14:00 95 10/11/17 13:46 97 10/11/17 13:30 97 10/11/17 13:16 97 10/11/17 13:00 97 10/11/17 12:46 97 10/11/17 12:30 97 10/11/17 12:16 97 10/11/17 12:00 94 - Physical Examination HEENT: Positive: Pallor Neck: Positive: neck supple. Negative: JVD/HJR Cardiac: Positive: Reg Rate and Rhythm Lungs: Positive: clear to auscultation Abdomen: Positive: Soft Extremities: Absent: edema
[2017-10-12] MEDS: ZITHROMAX 500 MG in NACL 0.9% 250ML 250 ML IV SCH (12:49)
--- NOTE | 2017-10-12 12:51 | Progress Note ---
Assessment and Plan Assessment and plan: Patient is a 72-year-old woman with a past medical history COPD dependent on 2 L of oxygen, asthma, diabetes, CHF, hypertension, CAD with history of CABG and stents presents to the Emergency Department complaints of shortness of breath. Acute on chronic respiratory failure with hypoxia Patient oxygen saturation improved with 2LNC; currently SPO2 98%. No acute respiratory distress noted. Aggressive Nebulizers/Inhalers ABG when necessary Oxygen supplement Supportive care Elevated troponin Echocardiogram performed 09/23/2017 shows EF of 55-60% with LVH and mild evidence of pulmonary hypertension Closely monitor electrolytes Cardiology evaluation Acute COPD exacerbation Continue on Duoneb every 6 hours Started IV steroid Solumedrol Initiated empiric IV azithromycin Oxygen as necessary Hypertensive urgency Continue home antihypertensive medications Closely monitor blood pressure CKD Stage III Patient serum creatinine is 1.6; which is her baseline IV fluid hydration Repeat BMP Chronic anemia Stable at this time, transfusion related Closely monitor H&H Noncompliance Patient noncompliance with her steroid and Lasix. Counseled about the importance of adherence to medication and treatment Moderate malnutrition Nutrition consult DVT prophylaxis Heparin pulmonology consult; therefore, will consult Dr. Fair History Interval history: Patient was seen and examined. Follow-up on current diagnosis. Overnight uneventful. Patient denies any chest pain, nausea/vomiting or severe headaches. Imaging, nursing note, chart, labs and old chart reviewed. Discussed with patient, still with sob especially with activity Hospitalist Physical - Physical exam Narrative exam: GEN: Chronic debilitated ill-appearing NAD, AWAKE, ALERT, ORIENTATED 3 HEENT: NCAT, EOMI, PERRL, OP Clear NECK: supple, no adenopathy, no thyromegaly, no JVD CVS/HEART: RRR, NORMAL S1S2, NO JVD, pulses present bilaterally CHEST/LUNGS: Bilateral rhonchi, reduced breath sounds Symmetrical chest expansion, diminished air entry bilaterally GI/Abdomen: soft, NTND, good bowel sounds, no guarding or rebound /Bladder: no suprapubic tenderness, no CVA or paraspinal tenderness EXT/Skin: no c/c/e, no obvious rash MSK: FROM x 4 Neuro: CN 2-12 grossly intact, no new focal deficits Psych: calm - Constitutional Vitals: Temp Pulse Resp BP Pulse Ox 98.0 F 65 18 150/46 97 10/12/17 08:13 10/12/17 09:37 10/12/17 09:37 10/12/17 09:14 10/12/17 09:27 Results - Labs CBC & Chem 7: 10/11/17 07:45 10/11/17 07:45 Labs: Laboratory Last Values WBC 8.4 K/mm3 (4.5-11.0) 10/11/17 07:45 RBC 3.53 M/mm3 (3.65-5.03) L 10/11/17 07:45 Hgb 9.1 gm/dl (10.1-14.3) L 10/11/17 07:45 Hct 28.0 % (30.3-42.9) L 10/11/17 07:45 MCV 79 fl (79-97) 10/11/17 07:45 MCH 26 pg (28-32) L 10/11/17 07:45 MCHC 33 % (30-34) 10/11/17 07:45 RDW 16.1 % (13.2-15.2) H 10/11/17 07:45 Plt Count 132 K/mm3 (140-440) L 10/11/17 07:45 Lymph % (Auto) 5.6 % (13.4-35.0) L 10/11/17 07:45 [place] % (Auto) 6.4 % (0.0-7.3) 10/11/17 07:45 Eos % (Auto) 1.1 % (0.0-4.3) 10/11/17 07:45 Baso % (Auto) 0.7 % (0.0-1.8) 10/11/17 07:45 Lymph # 0.5 K/mm3 (1.2-5.4) L 10/11/17 07:45 [place] # 0.5 K/mm3 (0.0-0.8) 10/11/17 07:45 Eos # 0.1 K/mm3 (0.0-0.4) 10/11/17 07:45 Baso # 0.1 K/mm3 (0.0-0.1) 10/11/17 07:45 Seg Neutrophils % 86.2 % (40.0-70.0) H 10/11/17 07:45 Seg Neutrophils # 7.2 K/mm3 (1.8-7.7) 10/11/17 07:45 PT 13.6 Sec. (12.2-14.9) 10/11/17 07:45 INR 0.99 (0.87-1.13) 10/11/17 07:45 APTT 24.1 Sec. (24.2-36.6) L 10/11/17 07:45 Sodium 140 mmol/L (137-145) 10/11/17 07:45 Potassium 4.7 mmol/L (3.6-5.0) 10/11/17 07:45 Chloride 99.3 mmol/L (98-107) 10/11/17 07:45 Carbon Dioxide 26 mmol/L (22-30) 10/11/17 07:45 Anion Gap 19 mmol/L 10/11/17 07:45 BUN 24 mg/dL (7-17) H 10/11/17 07:45 Creatinine 1.6 mg/dL (0.7-1.2) H 10/11/17 07:45 Estimated GFR 32 ml/min 10/11/17 07:45 BUN/Creatinine Ratio 15 % 10/11/17 07:45 Glucose 228 mg/dL (65-100) H 10/11/17 07:45 POC Glucose 404 (70-105) H 10/12/17 11:59 Calcium 7.9 mg/dL (8.4-10.2) L 10/11/17 07:45 Total Bilirubin 0.30 mg/dL (0.1-1.2) 10/11/17 07:45 AST 10 units/L (5-40) 10/11/17 07:45 ALT 9 units/L (7-56) 10/11/17 07:45 Alkaline Phosphatase 110 units/L (35-129) 10/11/17 07:45 Total Creatine Kinase 34 units/L (30-135) 10/11/17 07:45 CK-MB (CK-2) 1.6 ng/mL (0.0-4.0) 10/11/17 07:45 CK-MB (CK-2) Rel Index 4.7 (0-4) H 10/11/17 07:45 Troponin T 0.014 ng/mL (0.00-0.029) 10/11/17 13:08 NT-Pro-B Natriuret Pep 05557 pg/mL (0-900) H 10/11/17 07:45 Total Protein 5.7 g/dL (6.3-8.2) L 10/11/17 07:45 Albumin 2.7 g/dL (3.9-5) L 10/11/17 07:45 Albumin/Globulin Ratio 0.9 % 10/11/17 07:45 Triglycerides 139 mg/dL (2-149) 10/11/17 07:45 Cholesterol 166 mg/dL (50-199) 10/11/17 07:45 LDL Cholesterol Direct 101 mg/dL (50-130) 10/11/17 07:45 HDL Cholesterol 38 mg/dL (40-59) L 10/11/17 07:45 Cholesterol/HDL Ratio 4.36 % 10/11/17 07:45
--- NOTE | 2017-10-12 16:03 | Consultation ---
History of Present Illness Consult date: 10/12/17 Requesting physician: YENNI JEFFERSON Reason for consult: COPD History of present illness: 72 y/o female with known CAD, has never been formally diagnosed with COPD, admitted with acute on chronic respiratory failure secondary to noncompliance with home meds. Per patient stopped taking steroids as her blood sugar was elevated and stopped taking lasix as she had no more refils at Pharmacy. Cards feels that BNP is chronically elevated but it is increased compared to discharge. No cough, no fever. Anxiety is present. Past History Past Medical History: CAD (CAD with history of CABG and stents), COPD ( dependent on 2 L of oxygen, ), diabetes, heart failure, hypertension, other ( asthma, ) Past Surgical History: No surgical history, Other Social history: denies: smoking, alcohol abuse Family history: hypertension Medications and Allergies Allergies Allergy/AdvReac Type Severity Reaction Status Date / Time atorvastatin calcium AdvReac Unknown Verified 09/23/17 18:55 [From Lipitor] ofloxacin [From Floxin] AdvReac Unknown Verified 09/23/17 18:55 Home Medications Medication Instructions Recorded Confirmed Last Taken Type Insulin Glargine,Hum.rec.anlog 15 units SQ QHS 09/23/15 10/11/17 11/13/15 22:00 History [Lantus Solostar] 7 units Carvedilol 25 mg PO Q12HR 09/23/17 10/11/17 Unknown History Furosemide [Lasix TAB] 40 mg PO BID 09/23/17 10/11/17 Unknown History Lovastatin [Altoprev] 40 mg PO QPM 09/23/17 10/11/17 Unknown History ALBUTEROL NEB's [Proventil 0.083% 2.5 mg IH Q3HRT PRN #30 day 09/27/17 10/11/17 Unknown Rx NEBS] ALPRAZolam [Xanax TAB] 0.25 mg PO Q12HR PRN #30 tablet 09/27/17 10/11/17 Unknown Rx Aspirin 81 mg PO QDAY #30 tab.chew 09/27/17 10/11/17 Unknown Rx Clopidogrel [Plavix] 75 mg PO QDAY #30 tablet 09/27/17 10/11/17 Unknown Rx HYDROcodone/APAP 5-325 [[place] 1 each PO Q4H PRN #30 tablet 09/27/17 10/11/17 Unknown Rx 5-325 mg TAB] ISOSORBIDE MONOnitrate [Imdur ER] 30 mg PO DAILY #30 09/27/17 10/11/17 Unknown Rx Active Meds: Active Medications Albuterol (Proventil) 2.5 mg IH Q4HRT PRN PRN Reason: Shortness Of Breath Albuterol/Ipratropium (Duoneb *Not For Prn Use*) 1 ampul IH Q6HRT [facility] Last Admin: 10/12/17 15:21 Dose: 1 ampul Aspirin (Baby Aspirin) 81 mg PO QDAY [facility] Last Admin: 10/12/17 09:16 Dose: 81 mg Carvedilol (Coreg) 25 mg PO Q12HR [facility] Last Admin: 10/12/17 09:14 Dose: 25 mg Clopidogrel Bisulfate (Plavix) 75 mg PO QDAY [facility] Last Admin: 10/12/17 09:13 Dose: 75 mg Dextrose (D50w (25gm) Syringe) 50 ml IV PRN PRN PRN Reason: Hypoglycemia Dextrose (D50w (25gm) Vial) 50 gm IV PRN PRN PRN Reason: Hypoglycemia Enoxaparin Sodium (Lovenox) 30 mg SUB-Q QDAY [facility] Last Admin: 10/12/17 09:16 Dose: 30 mg Furosemide (Lasix) 40 mg PO BID [facility] Last Admin: 10/12/17 09:13 Dose: 40 mg Azithromycin 500 mg/ Sodium (Chloride) 250 mls @ 250 mls/hr IV Q24HR [facility] Last Admin: 10/12/17 12:49 Dose: 250 mls/hr Sodium Chloride (Nacl 0.9% 1000 Ml) 1,000 mls @ 100 mls/hr IV DIRECT [facility] Sodium Chloride (Nacl 0.9% 1000 Ml) 1,000 mls @ 75 mls/hr IV DIRECT [facility] Last Admin: 10/12/17 12:49 Dose: 75 mls/hr Insulin Aspart (Novolog) 0 units SUB-Q ACHS [facility] PRN Reason: Protocol Last Admin: 10/12/17 12:45 Dose: 10 units Insulin Detemir (Levemir) 10 units SUB-Q Q12H [facility] Last Admin: 10/12/17 09:57 Dose: 10 units Isosorbide Mononitrate (Imdur) 30 mg PO DAILY [facility] Last Admin: 10/12/17 09:13 Dose: 30 mg Methylprednisolone Sodium Succinate (Solu-Medrol) 80 mg IV Q8H [facility] Last Admin: 10/12/17 09:13 Dose: 80 mg Miscellaneous Medication (Lovastatin [Altoprev]) 40 mg PO QPM [facility] Review of Systems All systems: negative Physical Examination Vital signs: Vital Signs BP Pulse Ox 198/106 96 10/11/17 03:50 10/11/17 03:50 General appearance: no acute distress, alert, other (anxious) Eyes: non-icteric ENT: oropharynx moist Neck: supple Effort: normal Ascultation: Bilateral: diminished breath sounds Percussion: Bilateral: not dull Tactile fremitus: Bilateral: normal Cardiovascular: regular rate and rhythm Gastrointestinal: normoactive bowel sounds Extremities: no cyanosis, no edema Musculoskeletal: no deformities normal mental status, non-focal exam anxious Results - Laboratory Findings CBC and BMP: 10/11/17 07:45 10/11/17 07:45 PT/INR, D-dimer PT 13.6 Sec. (12.2-14.9) 10/11/17 07:45 INR 0.99 (0.87-1.13) 10/11/17 07:45 Abnormal lab findings: Abnormal Labs 10/11/17 10/11/17 10/11/17 07:45 07:45 07:45 RBC 3.53 L Hgb 9.1 L Hct 28.0 L MCH 26 L RDW 16.1 H Plt Count 132 L Lymph % (Auto) 5.6 L Lymph # 0.5 L Seg Neutrophils % 86.2 H APTT 24.1 L BUN 24 H Creatinine 1.6 H Glucose 228 H POC Glucose Calcium 7.9 L CK-MB (CK-2) Rel Index Troponin T 0.031 H NT-Pro-B Natriuret Pep Total Protein 5.7 L Albumin 2.7 L HDL Cholesterol 38 L 10/11/17 10/11/17 10/11/17 07:45 07:45 14:36 RBC Hgb Hct MCH RDW Plt Count Lymph % (Auto) Lymph # Seg Neutrophils % APTT BUN Creatinine Glucose POC Glucose 351 H Calcium CK-MB (CK-2) Rel Index 4.7 H Troponin T NT-Pro-B Natriuret Pep 61648 H Total Protein Albumin HDL Cholesterol 10/11/17 10/11/17 10/11/17 17:21 19:48 19:56 RBC Hgb Hct MCH RDW Plt Count Lymph % (Auto) Lymph # Seg Neutrophils % APTT BUN Creatinine Glucose POC Glucose 440 H > 500 H > 500 H Calcium CK-MB (CK-2) Rel Index Troponin T NT-Pro-B Natriuret Pep Total Protein Albumin HDL Cholesterol 10/11/17 10/12/17 10/12/17 22:20 08:52 11:59 RBC Hgb Hct MCH RDW Plt Count Lymph % (Auto) Lymph # Seg Neutrophils % APTT BUN Creatinine Glucose POC Glucose > 500 H 410 H 404 H Calcium CK-MB (CK-2) Rel Index Troponin T NT-Pro-B Natriuret Pep Total Protein Albumin HDL Cholesterol - Diagnostic Findings Chest x-ray: image reviewed (Cardiomegaly but clear) Assessment and Plan 72 y/o female with acute exacerbation of dypsnea, thought possibly secondary to obstructive lung disease, secondary to noncompliance with medical therapy and chronic renal failure. 1. Change to Prednisone 60 starting tomorrow. If she has already gotten her AM dose, then start the prednisone therapy on Saturday 2. Will start BID pulmicort and brovana and will need to be discharged on Symbicort 160 2 puffs BID 3. Continue supplemental O2, family needs CM consult as per them insurance will not pay for portable O2 concentrators. I do not know why 4. Continue daily net negative state if renal function and BP will allow. Needs outpatient kidney follow up Thanks for this consult.
[2017-10-13 05:24] LABS: Mean Corpuscular HGB Conc 32 % (30-34); Mean Corpuscular Volume 79 fl (79-97); Platelet Count 171 K/mm3 (140-440); Red Blood Count 3.52 M/mm3 (3.65-5.03); Red Cell Distribution Width 15.8 % (13.2-15.2); White Blood Count 11.6 K/mm3 (4.5-11.0)
[2017-10-13 05:26] LABS: Mean Corpuscular Hemoglobin 26 pg (28-32)
[2017-10-13 06:02] LABS: Calcium 7.7 mg/dL (8.4-10.2); Chloride 100.7 mmol/L (98-107)
[2017-10-13] MEDS: DUONEB *Not for PRN Use IH SCH ×3 (08:10→20:40)
[2017-10-13] MEDS: NACL 0.9% 1000 ML 1,000 ML IV SCH (09:16)
[2017-10-13] MEDS: LASIX PO SCH (09:17)
[2017-10-13] MEDS: BABY ASPIRIN PO SCH (09:18)
[2017-10-13] MEDS: COREG PO SCH ×2 (09:18→21:45)
[2017-10-13] MEDS: PLAVIX PO SCH (09:18)
[2017-10-13] MEDS: LOVENOX SUB-Q SCH (09:18)
[2017-10-13] MEDS: IMDUR PO SCH (09:18)
[2017-10-13] MEDS: NOVOLOG SUB-Q SCH ×4 (09:18→21:45)
[2017-10-13] MEDS: LEVEMIR SUB-Q SCH (09:20)
[2017-10-13] MEDS: ZITHROMAX 500 MG in NACL 0.9% 250ML 250 ML IV SCH (10:26)
--- NOTE | 2017-10-13 11:59 | Progress Note ---
Assessment and Plan Acute Hypoxic respiratory failure Exam findings are consistent with COPD exacerbation Patient has chronically elevated NT-proBNP secondary to renal failure and RV strain (no pulmonary edema on CXR) Non-compliance with Abx, steroids and inhalers Hx of CAD with 3v CABG LHC at [facility] 08/2017: Patent left internal mammary artery graft to the LAD. Patent saphenous vein graft to diagonal branch of LAD. Occluded saphenous vein graft to the circumflex. s/p drug-eluting stent deployment for severe in-stent restenosis of the mid right coronary. s/p circumflex vessel drug-eluting stent to de alex mid circumflex stenosis. Left ventricular ejection fraction 50-55% on echocardiogram. Chronic renal failure Hypertension Diabetes mellitus Tobacco abuse Recommendations: Advised smoking cessation. Continue medical therapy for coronary artery disease including aspirin and Plavix therapy without interruption. Pulmonary evaluation and management Subjective Date of service: 10/13/17 Interval history: Dyspnea slightly better today Objective Vital Signs Temp Pulse Pulse Pulse Resp Resp BP 10/13/17 09:27 97.7 F 97 H 20 10/13/17 09:18 78 173/82 10/13/17 08:25 100 H 16 10/13/17 08:13 10/13/17 08:00 98 H 16 10/13/17 03:28 97.4 F L 66 22 173/82 10/13/17 00:00 76 22 10/12/17 23:25 97.8 F 79 20 170/71 10/12/17 21:34 72 10/12/17 21:19 82 160/59 10/12/17 21:17 10/12/17 20:45 83 20 10/12/17 20:35 80 20 10/12/17 20:01 98.4 F 82 20 160/59 10/12/17 17:38 97.6 F 64 18 10/12/17 16:36 65 10/12/17 15:31 71 20 10/12/17 15:21 64 20 10/12/17 12:48 97.7 F 69 18 BP Pulse Ox 10/13/17 09:27 179/83 98 10/13/17 09:18 10/13/17 08:25 10/13/17 08:13 98 10/13/17 08:00 10/13/17 03:28 98 10/13/17 00:00 10/12/17 23:25 97 10/12/17 21:34 10/12/17 21:19 10/12/17 21:17 98 10/12/17 20:45 10/12/17 20:35 10/12/17 20:01 97 10/12/17 17:38 162/56 96 10/12/17 16:36 98 10/12/17 15:31 10/12/17 15:21 10/12/17 12:48 166/63 97 - Physical Examination HEENT: Positive: Pallor Neck: Positive: neck supple. Negative: JVD/HJR Cardiac: Positive: Reg Rate and Rhythm Lungs: Positive: Rhonchi Abdomen: Positive: Soft Extremities: Absent: edema - Labs and Meds CBC 10/13/17 Range/Units 05:02 WBC 11.6 H (4.5-11.0) K/mm3 RBC 3.52 L (3.65-5.03) M/mm3 Hgb 9.0 L (10.1-14.3) gm/dl Hct 28.0 L (30.3-42.9) % Plt Count 171 (140-440) K/mm3 Comprehensive Metabolic Panel 10/13/17 Range/Units 05:02 Sodium 140 (137-145) mmol/L Potassium 4.0 (3.6-5.0) mmol/L Chloride 100.7 (98-107) mmol/L Carbon Dioxide 23 (22-30) mmol/L BUN 40 H (7-17) mg/dL Creatinine 1.8 H (0.7-1.2) mg/dL Glucose 254 H (65-100) mg/dL Calcium 7.7 L (8.4-10.2) mg/dL
--- NOTE | 2017-10-13 12:56 | Progress Note ---
Assessment and Plan 72 y/o female with acute exacerbation of dypsnea, thought possibly secondary to obstructive lung disease, secondary to noncompliance with medical therapy and chronic renal failure. 1. Continue prednisone 60 daily. At discharge taper as follows 60x1, 40x2, 20x2, 10x2 then stop. 2. Will start BID pulmicort and brovana and will need to be discharged on Symbicort 160 2 puffs BID 3. Continue supplemental O2, family needs CM consult as per them insurance will not pay for portable O2 concentrators. I do not know why 4. Continue daily net negative state if renal function and BP will allow. Needs outpatient kidney follow up. Needs strict I/O if possible Subjective Date of service: 10/13/17 Interval history: No acute events. Feels somewhat better. Steroids changed to 60 daily as per recommendations. I/O is not strict Objective Vital Signs - 12hr 10/13/17 10/13/17 10/13/17 03:28 08:00 08:13 Temperature 97.4 F L Pulse Rate 66 Pulse Rate [ 98 H Anterior Bilateral Throughout] Respiratory 22 Rate Respiratory 16 Rate [Anterior Bilateral Throughout] Blood Pressure 173/82 Blood Pressure [Left] O2 Sat by Pulse 98 98 Oximetry 10/13/17 10/13/17 10/13/17 08:25 09:18 09:27 Temperature 97.7 F Pulse Rate 78 97 H Pulse Rate [ 100 H Anterior Bilateral Throughout] Respiratory 20 Rate Respiratory 16 Rate [Anterior Bilateral Throughout] Blood Pressure 173/82 Blood Pressure 179/83 [Left] O2 Sat by Pulse 98 Oximetry Constitutional: no acute distress, alert, other (anxious) Eyes: non-icteric ENT: oropharynx moist Neck: supple Effort: normal Ascultation: Bilateral: diminished breath sounds Percussion: Bilateral: not dull Tactile fremitus: Bilateral: normal Cardiovascular: regular rate and rhythm Gastrointestinal: normoactive bowel sounds Extremities: no cyanosis, no edema Neurologic: normal mental status, non-focal exam Psychiatric: anxious CBC and BMP: 10/13/17 05:02 10/13/17 05:02 ABG, PT/INR, D-dimer: PT/INR, D-dimer PT 13.6 Sec. (12.2-14.9) 10/11/17 07:45 INR 0.99 (0.87-1.13) 10/11/17 07:45 Abnormal lab findings: Abnormal Labs 10/11/17 10/11/17 10/11/17 07:45 07:45 07:45 WBC RBC 3.53 L Hgb 9.1 L Hct 28.0 L MCH 26 L RDW 16.1 H Plt Count 132 L Lymph % (Auto) 5.6 L Lymph # 0.5 L Seg Neutrophils % 86.2 H APTT 24.1 L BUN 24 H Creatinine 1.6 H Glucose 228 H POC Glucose Calcium 7.9 L CK-MB (CK-2) Rel Index Troponin T 0.031 H NT-Pro-B Natriuret Pep Total Protein 5.7 L Albumin 2.7 L HDL Cholesterol 38 L 10/11/17 10/11/17 10/11/17 07:45 07:45 14:36 WBC RBC Hgb Hct MCH RDW Plt Count Lymph % (Auto) Lymph # Seg Neutrophils % APTT BUN Creatinine Glucose POC Glucose 351 H Calcium CK-MB (CK-2) Rel Index 4.7 H Troponin T NT-Pro-B Natriuret Pep 60075 H Total Protein Albumin HDL Cholesterol 10/11/17 10/11/17 10/11/17 17:21 19:48 19:56 WBC RBC Hgb Hct MCH RDW Plt Count Lymph % (Auto) Lymph # Seg Neutrophils % APTT BUN Creatinine Glucose POC Glucose 440 H > 500 H > 500 H Calcium CK-MB (CK-2) Rel Index Troponin T NT-Pro-B Natriuret Pep Total Protein Albumin HDL Cholesterol 10/11/17 10/12/17 10/12/17 22:20 08:52 11:59 WBC RBC Hgb Hct MCH RDW Plt Count Lymph % (Auto) Lymph # Seg Neutrophils % APTT BUN Creatinine Glucose POC Glucose > 500 H 410 H 404 H Calcium CK-MB (CK-2) Rel Index Troponin T NT-Pro-B Natriuret Pep Total Protein Albumin HDL Cholesterol 10/12/17 10/12/17 10/13/17 16:44 21:22 05:02 WBC 11.6 H RBC 3.52 L Hgb 9.0 L Hct 28.0 L MCH 26 L RDW 15.8 H Plt Count Lymph % (Auto) Lymph # Seg Neutrophils % APTT BUN Creatinine Glucose POC Glucose 393 H 371 H Calcium CK-MB (CK-2) Rel Index Troponin T NT-Pro-B Natriuret Pep Total Protein Albumin HDL Cholesterol 10/13/17 10/13/17 10/13/17 05:02 09:01 11:18 WBC RBC Hgb Hct MCH RDW Plt Count Lymph % (Auto) Lymph # Seg Neutrophils % APTT BUN 40 H Creatinine 1.8 H Glucose 254 H POC Glucose 310 H 386 H Calcium 7.7 L CK-MB (CK-2) Rel Index Troponin T NT-Pro-B Natriuret Pep Total Protein Albumin HDL Cholesterol
--- NOTE | 2017-10-13 13:55 | Progress Note ---
Assessment and Plan Assessment and plan: Patient is a 72-year-old woman with a past medical history COPD dependent on 2 L of oxygen, asthma, diabetes, CHF, hypertension, CAD with history of CABG and stents presents to the Emergency Department complaints of shortness of breath. Acute on chronic respiratory failure with hypoxia Patient oxygen saturation improved with 2LNC; currently SPO2 98%. No acute respiratory distress noted. Aggressive Nebulizers/Inhalers ABG when necessary Oxygen supplement Supportive care Elevated troponin Echocardiogram performed 09/23/2017 shows EF of 55-60% with LVH and mild evidence of pulmonary hypertension Closely monitor electrolytes Cardiology evaluation Acute COPD exacerbation Continue on Duoneb every 6 hours Started IV steroid Solumedrol Initiated empiric IV azithromycin Oxygen as necessary Hypertensive urgency Continue home antihypertensive medications Closely monitor blood pressure CKD Stage III Patient serum creatinine is 1.6; which is her baseline IV fluid hydration Repeat BMP Chronic anemia Stable at this time, transfusion related Closely monitor H&H Noncompliance Patient noncompliance with her steroid and Lasix. Counseled about the importance of adherence to medication and treatment Moderate malnutrition Nutrition consult DVT prophylaxis Heparin History Interval history: Patient was seen and examined. Follow-up on current diagnosis. Overnight uneventful. Patient denies any chest pain, nausea/vomiting or severe headaches. Imaging, nursing note, chart, labs and old chart reviewed. Discussed with patient, still with sob especially with activity Hospitalist Physical - Physical exam Narrative exam: GEN: Chronic debilitated ill-appearing NAD, AWAKE, ALERT, ORIENTATED 3 HEENT: NCAT, EOMI, PERRL, OP Clear NECK: supple, no adenopathy, no thyromegaly, no JVD CVS/HEART: RRR, NORMAL S1S2, NO JVD, pulses present bilaterally CHEST/LUNGS: Bilateral rhonchi, reduced breath sounds Symmetrical chest expansion, diminished air entry bilaterally GI/Abdomen: soft, NTND, good bowel sounds, no guarding or rebound /Bladder: no suprapubic tenderness, no CVA or paraspinal tenderness EXT/Skin: no c/c/e, no obvious rash MSK: FROM x 4 Neuro: CN 2-12 grossly intact, no new focal deficits Psych: calm - Constitutional Vitals: Temp Pulse Resp BP Pulse Ox 97.7 F 97 H 20 179/83 98 10/13/17 09:27 10/13/17 09:27 10/13/17 09:27 10/13/17 09:27 10/13/17 09:27 General appearance: Present: other (alert but very lethargic) Results - Labs CBC & Chem 7: 10/13/17 05:02 10/13/17 05:02 Labs: Laboratory Last Values WBC 11.6 K/mm3 (4.5-11.0) H 10/13/17 05:02 RBC 3.52 M/mm3 (3.65-5.03) L 10/13/17 05:02 Hgb 9.0 gm/dl (10.1-14.3) L 10/13/17 05:02 Hct 28.0 % (30.3-42.9) L 10/13/17 05:02 MCV 79 fl (79-97) 10/13/17 05:02 MCH 26 pg (28-32) L 10/13/17 05:02 MCHC 32 % (30-34) 10/13/17 05:02 RDW 15.8 % (13.2-15.2) H 10/13/17 05:02 Plt Count 171 K/mm3 (140-440) 10/13/17 05:02 Lymph % (Auto) 5.6 % (13.4-35.0) L 10/11/17 07:45 Grainger % (Auto) 6.4 % (0.0-7.3) 10/11/17 07:45 Eos % (Auto) 1.1 % (0.0-4.3) 10/11/17 07:45 Baso % (Auto) 0.7 % (0.0-1.8) 10/11/17 07:45 Lymph # 0.5 K/mm3 (1.2-5.4) L 10/11/17 07:45 Grainger # 0.5 K/mm3 (0.0-0.8) 10/11/17 07:45 Eos # 0.1 K/mm3 (0.0-0.4) 10/11/17 07:45 Baso # 0.1 K/mm3 (0.0-0.1) 10/11/17 07:45 Seg Neutrophils % 86.2 % (40.0-70.0) H 10/11/17 07:45 Seg Neutrophils # 7.2 K/mm3 (1.8-7.7) 10/11/17 07:45 PT 13.6 Sec. (12.2-14.9) 10/11/17 07:45 INR 0.99 (0.87-1.13) 10/11/17 07:45 APTT 24.1 Sec. (24.2-36.6) L 10/11/17 07:45 Sodium 140 mmol/L (137-145) 10/13/17 05:02 Potassium 4.0 mmol/L (3.6-5.0) 10/13/17 05:02 Chloride 100.7 mmol/L (98-107) 10/13/17 05:02 Carbon Dioxide 23 mmol/L (22-30) 10/13/17 05:02 Anion Gap 20 mmol/L 10/13/17 05:02 BUN 40 mg/dL (7-17) H 10/13/17 05:02 Creatinine 1.8 mg/dL (0.7-1.2) H 10/13/17 05:02 Estimated GFR 28 ml/min 10/13/17 05:02 BUN/Creatinine Ratio 22 % 10/13/17 05:02 Glucose 254 mg/dL (65-100) H 10/13/17 05:02 POC Glucose 386 (70-105) H 10/13/17 11:18 Calcium 7.7 mg/dL (8.4-10.2) L 10/13/17 05:02 Total Bilirubin 0.30 mg/dL (0.1-1.2) 10/11/17 07:45 AST 10 units/L (5-40) 10/11/17 07:45 ALT 9 units/L (7-56) 10/11/17 07:45 Alkaline Phosphatase 110 units/L (35-129) 10/11/17 07:45 Total Creatine Kinase 34 units/L (30-135) 10/11/17 07:45 CK-MB (CK-2) 1.6 ng/mL (0.0-4.0) 10/11/17 07:45 CK-MB (CK-2) Rel Index 4.7 (0-4) H 10/11/17 07:45 Troponin T 0.014 ng/mL (0.00-0.029) 10/11/17 13:08 NT-Pro-B Natriuret Pep 79387 pg/mL (0-900) H 10/11/17 07:45 Total Protein 5.7 g/dL (6.3-8.2) L 10/11/17 07:45 Albumin 2.7 g/dL (3.9-5) L 10/11/17 07:45 Albumin/Globulin Ratio 0.9 % 10/11/17 07:45 Triglycerides 139 mg/dL (2-149) 10/11/17 07:45 Cholesterol 166 mg/dL (50-199) 10/11/17 07:45 LDL Cholesterol Direct 101 mg/dL (50-130) 10/11/17 07:45 HDL Cholesterol 38 mg/dL (40-59) L 10/11/17 07:45 Cholesterol/HDL Ratio 4.36 % 10/11/17 07:45
[2017-10-14] MEDS: DUONEB *Not for PRN Use IH SCH ×3 (09:16→20:05)
[2017-10-14] MEDS: NOVOLOG SUB-Q SCH ×4 (09:32→22:07)
[2017-10-14] MEDS: LEVEMIR SUB-Q SCH (09:33)
[2017-10-14] MEDS: LOVENOX SUB-Q SCH (09:35)
[2017-10-14] MEDS: BABY ASPIRIN PO SCH (09:36)
[2017-10-14] MEDS: IMDUR PO SCH (09:36)
[2017-10-14] MEDS: LASIX PO SCH (09:36)
[2017-10-14] MEDS: COREG PO SCH ×2 (09:37→22:06)
[2017-10-14] MEDS: PLAVIX PO SCH (09:37)
[2017-10-14] MEDS: DELTASONE PO SCH (09:37)
[2017-10-14] MEDS: ZITHROMAX 500 MG in NACL 0.9% 250ML 250 ML IV SCH (09:39)
--- NOTE | 2017-10-14 11:10 | Query- General ---
Panfilo Cat Young Date:___10/14/17 Associate Director/CDS:____Rohit Phone#:____[phone] Exercise your independent professional judgment when responding to this query. Questions asked do not imply a particular answer is desired or expected. We greatly appreciate your clarification on this issue. Clinical Documentation States: 72 year old female was admitted on 10/11/17 The progress note (Dr. Vidal 10/13/17) states " Assessment and plan: Patient is a 72-year-old woman with a past medical history COPD dependent on 2 L of oxygen, asthma, diabetes, CHF, hypertension, CAD with history of CABG and stents presents to the Emergency Department complaints of shortness of breath. " Clinical Findings Show (include reference to source document): BNP: [id number] Given the above clinical scenario can you please provide an appropriate diagnosis based on your knowledge of the patient: PHYSICIAN RESPONSE: Acuity: [ ] Acute [ ] Chronic [ ] Acute on Chronic Type: [ ] Systolic Heart Failure [ ] Diastolic Heart Failure [ ] Combined Heart Failure [ x] Other: chronic diastolic heart failure Present on Admission: [x ] Yes (Y) [ ] Clinically undeterminable (W) [ ]No(N) Please also document response in your Progress Notes and/or Discharge Summary and indicate if the condition was present on admission. REAGAN
--- NOTE | 2017-10-14 11:48 | Progress Note ---
Assessment and Plan Acute Hypoxic respiratory failure COPD exacerbation s/t non-compliance with Abx, steroids Hx of CAD with 3v CABG LHC at [facility] 08/2017: Patent left internal mammary artery graft to the LAD. Patent saphenous vein graft to diagonal branch of LAD. Occluded saphenous vein graft to the circumflex. s/p drug-eluting stent deployment for severe in-stent restenosis of the mid right coronary. s/p circumflex vessel drug-eluting stent to de alex mid circumflex stenosis. Left ventricular ejection fraction 50-55% on echocardiogram. Chronic renal failure Hypertension Diabetes mellitus Continue medical therapy for coronary artery disease including aspirin and Plavix therapy. Subjective Date of service: 10/14/17 Interval history: Patient reports her breathing is better. She denies chest pain. Objective Vital Signs Temp Pulse Pulse Resp Resp BP BP 10/14/17 09:24 70 18 10/14/17 09:22 10/14/17 09:15 68 18 10/14/17 08:24 97.4 F L 80 20 156/76 10/14/17 07:33 97.4 F L 83 20 156/76 10/14/17 06:02 98.5 F 62 18 137/70 10/13/17 23:38 98.2 F 69 18 151/52 10/13/17 22:00 79 10/13/17 21:45 144/46 10/13/17 20:37 10/13/17 20:18 97.8 F 77 18 144/46 10/13/17 20:00 86 20 10/13/17 19:50 83 20 10/13/17 18:59 97.9 F 72 20 146/61 10/13/17 15:45 97.9 F 91 H 20 146/61 10/13/17 14:10 81 20 10/13/17 14:00 97 H 79 20 Pulse Ox 10/14/17 09:24 10/14/17 09:22 98 10/14/17 09:15 10/14/17 08:24 100 10/14/17 07:33 99 10/14/17 06:02 97 10/13/17 23:38 98 10/13/17 22:00 10/13/17 21:45 10/13/17 20:37 96 10/13/17 20:18 97 10/13/17 20:00 10/13/17 19:50 10/13/17 18:59 97 10/13/17 15:45 97 10/13/17 14:10 10/13/17 14:00 - Physical Examination General: No Apparent Distress Cardiac: Positive: Reg Rate and Rhythm Lungs: Positive: Wheezes Neuro: Positive: Grossly Intact
--- NOTE | 2017-10-14 12:56 | Progress Note ---
Assessment and Plan Acute Hypoxic respiratory failure. Improved. The patient is on oxygen already at home. COPD exacerbation- non-compliance with Abx, steroids Hx of CAD with 3v CABG LHC at [facility] 08/2017: Patent left internal mammary artery graft to the LAD. Patent saphenous vein graft to diagonal branch of LAD. Occluded saphenous vein graft to the circumflex. s/p drug-eluting stent deployment for severe in-stent restenosis of the mid right coronary. s/p circumflex vessel drug-eluting stent to de alex mid circumflex stenosis. Left ventricular ejection fraction 50-55% on echocardiogram. Chronic renal failure Hypertension Diabetes mellitus Recommendations: Ambulate patient and monitor oximetry. Add portable oxygen 2 L/m if oximetry below 89% on room air. Updated influenza and pneumonia vaccination, per patient Candidate for pulmonary rehabilitation, once on stable outpatient status. Outpatient pulmonary evaluation, PFT workup for COPD severity stratification Inhaler therapy including LAMA, LABA/ICS therapy, per GOLD guidelines. She uses Spiriva, I will recommend this medication plus either Breo or Symbicort as an outpatient. Nutritional support. Discussed smoking cessation in detail. Also to avoid smokers at home, her daughter also smokes. Subjective Date of service: 10/14/17 Principal diagnosis: dyspnea, COPD, respiratory failure Interval history: The patient states that she is feeling better. Her breathing is still sometimes "tight" but, shortness of breath is improving. No chest pain or active expectoration. Objective Vital Signs - 12hr 10/14/17 10/14/17 10/14/17 06:02 07:33 08:24 Temperature 98.5 F 97.4 F L 97.4 F L Pulse Rate 62 83 80 Pulse Rate [ Anterior Bilateral Throughout] Respiratory 18 20 20 Rate Respiratory Rate [Anterior Bilateral Throughout] Blood Pressure 137/70 156/76 Blood Pressure 156/76 [Left] O2 Sat by Pulse 97 99 100 Oximetry 10/14/17 10/14/17 10/14/17 09:15 09:22 09:24 Temperature Pulse Rate Pulse Rate [ 68 70 Anterior Bilateral Throughout] Respiratory Rate Respiratory 18 18 Rate [Anterior Bilateral Throughout] Blood Pressure Blood Pressure [Left] O2 Sat by Pulse 98 Oximetry 10/14/17 11:27 Temperature 97.8 F Pulse Rate 89 Pulse Rate [ Anterior Bilateral Throughout] Respiratory 20 Rate Respiratory Rate [Anterior Bilateral Throughout] Blood Pressure 154/78 Blood Pressure [Left] O2 Sat by Pulse 97 Oximetry Constitutional: no acute distress, alert, other (anxious) Eyes: non-icteric ENT: oropharynx moist Neck: supple, no JVD Effort: normal Ascultation: Bilateral: diminished breath sounds Percussion: Bilateral: not dull Tactile fremitus: Bilateral: normal Cardiovascular: regular rate and rhythm Gastrointestinal: normoactive bowel sounds Extremities: no cyanosis, no edema Neurologic: normal mental status, non-focal exam Psychiatric: anxious CBC and BMP: 10/13/17 05:02 10/13/17 05:02 ABG, PT/INR, D-dimer: PT/INR, D-dimer PT 13.6 Sec. (12.2-14.9) 10/11/17 07:45 INR 0.99 (0.87-1.13) 10/11/17 07:45 Abnormal lab findings: Abnormal Labs 10/11/17 10/11/17 10/11/17 07:45 07:45 07:45 WBC RBC 3.53 L Hgb 9.1 L Hct 28.0 L MCH 26 L RDW 16.1 H Plt Count 132 L Lymph % (Auto) 5.6 L Lymph # 0.5 L Seg Neutrophils % 86.2 H APTT 24.1 L BUN 24 H Creatinine 1.6 H Glucose 228 H POC Glucose Calcium 7.9 L CK-MB (CK-2) Rel Index Troponin T 0.031 H NT-Pro-B Natriuret Pep Total Protein 5.7 L Albumin 2.7 L HDL Cholesterol 38 L 10/11/17 10/11/17 10/11/17 07:45 07:45 14:36 WBC RBC Hgb Hct MCH RDW Plt Count Lymph % (Auto) Lymph # Seg Neutrophils % APTT BUN Creatinine Glucose POC Glucose 351 H Calcium CK-MB (CK-2) Rel Index 4.7 H Troponin T NT-Pro-B Natriuret Pep 46429 H Total Protein Albumin HDL Cholesterol 10/11/17 10/11/17 10/11/17 17:21 19:48 19:56 WBC RBC Hgb Hct MCH RDW Plt Count Lymph % (Auto) Lymph # Seg Neutrophils % APTT BUN Creatinine Glucose POC Glucose 440 H > 500 H > 500 H Calcium CK-MB (CK-2) Rel Index Troponin T NT-Pro-B Natriuret Pep Total Protein Albumin HDL Cholesterol 10/11/17 10/12/17 10/12/17 22:20 08:52 11:59 WBC RBC Hgb Hct MCH RDW Plt Count Lymph % (Auto) Lymph # Seg Neutrophils % APTT BUN Creatinine Glucose POC Glucose > 500 H 410 H 404 H Calcium CK-MB (CK-2) Rel Index Troponin T NT-Pro-B Natriuret Pep Total Protein Albumin HDL Cholesterol 10/12/17 10/12/17 10/13/17 16:44 21:22 05:02 WBC 11.6 H RBC 3.52 L Hgb 9.0 L Hct 28.0 L MCH 26 L RDW 15.8 H Plt Count Lymph % (Auto) Lymph # Seg Neutrophils % APTT BUN Creatinine Glucose POC Glucose 393 H 371 H Calcium CK-MB (CK-2) Rel Index Troponin T NT-Pro-B Natriuret Pep Total Protein Albumin HDL Cholesterol 10/13/17 10/13/17 10/13/17 05:02 07:27 09:01 WBC RBC Hgb Hct MCH RDW Plt Count Lymph % (Auto) Lymph # Seg Neutrophils % APTT BUN 40 H Creatinine 1.8 H Glucose 254 H POC Glucose 251 H 310 H Calcium 7.7 L CK-MB (CK-2) Rel Index Troponin T NT-Pro-B Natriuret Pep Total Protein Albumin HDL Cholesterol 10/13/17 10/13/17 10/13/17 11:18 15:48 20:23 WBC RBC Hgb Hct MCH RDW Plt Count Lymph % (Auto) Lymph # Seg Neutrophils % APTT BUN Creatinine Glucose POC Glucose 386 H 415 H 387 H Calcium CK-MB (CK-2) Rel Index Troponin T NT-Pro-B Natriuret Pep Total Protein Albumin HDL Cholesterol Chest x-ray: report reviewed, image reviewed
--- NOTE | 2017-10-14 16:34 | Progress Note ---
Assessment and Plan Assessment and plan: Patient is a 72-year-old woman with a past medical history COPD dependent on 2 L of oxygen, asthma, diabetes, CHF, hypertension, CAD with history of CABG and stents presents to the Emergency Department complaints of shortness of breath. Acute on chronic respiratory failure with hypoxia Patient oxygen saturation improved with 2LNC; currently SPO2 98%. No acute respiratory distress noted. Aggressive Nebulizers/Inhalers ABG when necessary Oxygen supplement Supportive care Elevated troponin Echocardiogram performed 09/23/2017 shows EF of 55-60% with LVH and mild evidence of pulmonary hypertension Closely monitor electrolytes Cardiology evaluation Acute COPD exacerbation Continue on Duoneb every 6 hours Started IV steroid Solumedrol Initiated empiric IV azithromycin Oxygen as necessary Hypertensive urgency Continue home antihypertensive medications Closely monitor blood pressure CKD Stage III Patient serum creatinine is 1.6; which is her baseline IV fluid hydration Repeat BMP Chronic anemia Stable at this time, transfusion related Closely monitor H&H Noncompliance Patient noncompliance with her steroid and Lasix. Counseled about the importance of adherence to medication and treatment Moderate malnutrition Nutrition consult DVT prophylaxis Heparin History Interval history: Patient was seen and examined. Follow-up on current diagnosis. Overnight uneventful. Patient denies any chest pain, nausea/vomiting or severe headaches. Imaging, nursing note, chart, labs and old chart reviewed. Discussed with patient, still with sob especially with activity Hospitalist Physical - Physical exam Narrative exam: GEN: Chronic debilitated ill-appearing NAD, AWAKE, ALERT, ORIENTATED 3 HEENT: NCAT, EOMI, PERRL, OP Clear NECK: supple, no adenopathy, no thyromegaly, no JVD CVS/HEART: RRR, NORMAL S1S2, NO JVD, pulses present bilaterally CHEST/LUNGS: Bilateral rhonchi, reduced breath sounds Symmetrical chest expansion, diminished air entry bilaterally GI/Abdomen: soft, NTND, good bowel sounds, no guarding or rebound /Bladder: no suprapubic tenderness, no CVA or paraspinal tenderness EXT/Skin: no c/c/e, no obvious rash MSK: FROM x 4 Neuro: CN 2-12 grossly intact, no new focal deficits Psych: calm - Constitutional Vitals: Temp Pulse Resp BP Pulse Ox 98.1 F 88 18 146/58 97 10/14/17 15:23 10/14/17 15:23 10/14/17 15:23 10/14/17 15:23 10/14/17 15:01 General appearance: Present: other (alert but very lethargic) Results - Labs CBC & Chem 7: 10/13/17 05:02 10/13/17 05:02 Labs: Laboratory Last Values WBC 11.6 K/mm3 (4.5-11.0) H 10/13/17 05:02 RBC 3.52 M/mm3 (3.65-5.03) L 10/13/17 05:02 Hgb 9.0 gm/dl (10.1-14.3) L 10/13/17 05:02 Hct 28.0 % (30.3-42.9) L 10/13/17 05:02 MCV 79 fl (79-97) 10/13/17 05:02 MCH 26 pg (28-32) L 10/13/17 05:02 MCHC 32 % (30-34) 10/13/17 05:02 RDW 15.8 % (13.2-15.2) H 10/13/17 05:02 Plt Count 171 K/mm3 (140-440) 10/13/17 05:02 Lymph % (Auto) 5.6 % (13.4-35.0) L 10/11/17 07:45 [place] % (Auto) 6.4 % (0.0-7.3) 10/11/17 07:45 Eos % (Auto) 1.1 % (0.0-4.3) 10/11/17 07:45 Baso % (Auto) 0.7 % (0.0-1.8) 10/11/17 07:45 Lymph # 0.5 K/mm3 (1.2-5.4) L 10/11/17 07:45 [place] # 0.5 K/mm3 (0.0-0.8) 10/11/17 07:45 Eos # 0.1 K/mm3 (0.0-0.4) 10/11/17 07:45 Baso # 0.1 K/mm3 (0.0-0.1) 10/11/17 07:45 Seg Neutrophils % 86.2 % (40.0-70.0) H 10/11/17 07:45 Seg Neutrophils # 7.2 K/mm3 (1.8-7.7) 10/11/17 07:45 PT 13.6 Sec. (12.2-14.9) 10/11/17 07:45 INR 0.99 (0.87-1.13) 10/11/17 07:45 APTT 24.1 Sec. (24.2-36.6) L 10/11/17 07:45 Sodium 140 mmol/L (137-145) 10/13/17 05:02 Potassium 4.0 mmol/L (3.6-5.0) 10/13/17 05:02 Chloride 100.7 mmol/L (98-107) 10/13/17 05:02 Carbon Dioxide 23 mmol/L (22-30) 10/13/17 05:02 Anion Gap 20 mmol/L 10/13/17 05:02 BUN 40 mg/dL (7-17) H 10/13/17 05:02 Creatinine 1.8 mg/dL (0.7-1.2) H 10/13/17 05:02 Estimated GFR 28 ml/min 10/13/17 05:02 BUN/Creatinine Ratio 22 % 10/13/17 05:02 Glucose 254 mg/dL (65-100) H 10/13/17 05:02 POC Glucose 387 (70-105) H 10/13/17 20:23 Calcium 7.7 mg/dL (8.4-10.2) L 10/13/17 05:02 Total Bilirubin 0.30 mg/dL (0.1-1.2) 10/11/17 07:45 AST 10 units/L (5-40) 10/11/17 07:45 ALT 9 units/L (7-56) 10/11/17 07:45 Alkaline Phosphatase 110 units/L (35-129) 10/11/17 07:45 Total Creatine Kinase 34 units/L (30-135) 10/11/17 07:45 CK-MB (CK-2) 1.6 ng/mL (0.0-4.0) 10/11/17 07:45 CK-MB (CK-2) Rel Index 4.7 (0-4) H 10/11/17 07:45 Troponin T 0.014 ng/mL (0.00-0.029) 10/11/17 13:08 NT-Pro-B Natriuret Pep 30475 pg/mL (0-900) H 10/11/17 07:45 Total Protein 5.7 g/dL (6.3-8.2) L 10/11/17 07:45 Albumin 2.7 g/dL (3.9-5) L 10/11/17 07:45 Albumin/Globulin Ratio 0.9 % 10/11/17 07:45 Triglycerides 139 mg/dL (2-149) 10/11/17 07:45 Cholesterol 166 mg/dL (50-199) 10/11/17 07:45 LDL Cholesterol Direct 101 mg/dL (50-130) 10/11/17 07:45 HDL Cholesterol 38 mg/dL (40-59) L 10/11/17 07:45 Cholesterol/HDL Ratio 4.36 % 10/11/17 07:45
[2017-10-15] MEDS: DUONEB *Not for PRN Use IH SCH ×4 (07:39→20:42)
--- NOTE | 2017-10-15 10:34 | Progress Note ---
Assessment and Plan Acute Hypoxic respiratory failure COPD exacerbation s/t non-compliance with Abx, steroids Hx of CAD with 3v CABG LHC at [facility] 08/2017: Patent left internal mammary artery graft to the LAD. Patent saphenous vein graft to diagonal branch of LAD. Occluded saphenous vein graft to the circumflex. s/p drug-eluting stent deployment for severe in-stent restenosis of the mid right coronary. s/p circumflex vessel drug-eluting stent to de alex mid circumflex stenosis. Left ventricular ejection fraction 50-55% on echocardiogram. Chronic renal failure Hypertension Diabetes mellitus Continue medical therapy for coronary artery disease including aspirin and Plavix therapy. Conservative cardiac management. Subjective Date of service: 10/15/17 Principal diagnosis: dyspnea, COPD, respiratory failure Interval history: Patient reports her breathing is better. No distress noted. Objective Vital Signs Temp Pulse Pulse Resp Resp BP BP 10/15/17 08:57 97.4 F L 67 20 150/91 10/15/17 05:23 93 H 10/15/17 05:00 97.6 F 49 L 16 185/66 10/15/17 00:54 97.6 F 74 17 161/68 10/14/17 20:58 98.5 F 70 20 158/57 10/14/17 20:19 16 10/14/17 20:01 10/14/17 20:00 57 L 20 10/14/17 15:23 98.1 F 88 18 146/58 10/14/17 15:01 98.1 F 80 18 146/58 10/14/17 14:06 76 16 10/14/17 14:00 88 10/14/17 13:54 72 16 10/14/17 11:27 97.8 F 89 20 154/78 Pulse Ox 10/15/17 08:57 95 10/15/17 05:23 10/15/17 05:00 99 10/15/17 00:54 96 10/14/17 20:58 96 10/14/17 20:19 10/14/17 20:01 97 10/14/17 20:00 10/14/17 15:23 10/14/17 15:01 97 10/14/17 14:06 10/14/17 14:00 10/14/17 13:54 10/14/17 11:27 97 - Physical Examination General: No Apparent Distress Cardiac: Positive: Reg Rate and Rhythm Neuro: Positive: Grossly Intact Extremities: Absent: edema
[2017-10-15] MEDS: LASIX PO SCH (10:40)
[2017-10-15] MEDS: LOVENOX SUB-Q SCH (10:40)
[2017-10-15] MEDS: DELTASONE PO SCH (10:40)
[2017-10-15] MEDS: COREG PO SCH ×2 (10:40→22:13)
[2017-10-15] MEDS: IMDUR PO SCH (10:41)
[2017-10-15] MEDS: BABY ASPIRIN PO SCH (10:41)
[2017-10-15] MEDS: NOVOLOG SUB-Q SCH ×4 (10:41→22:27)
[2017-10-15] MEDS: PLAVIX PO SCH (10:41)
[2017-10-15] MEDS: LEVEMIR SUB-Q SCH (10:42)
[2017-10-15] MEDS: ZITHROMAX 500 MG in NACL 0.9% 250ML 250 ML IV SCH (10:46)
--- NOTE | 2017-10-15 11:15 | Progress Note ---
Assessment and Plan Acute Hypoxic respiratory failure. Improved. No chest congestion at this time. COPD exacerbation- history of non-compliance with antibiotics, steroids Hx of CAD with 3v CABG. Per cardiology: LHC at [facility] 08/2017: Patent left internal mammary artery graft to the LAD. Patent saphenous vein graft to diagonal branch of LAD. Occluded saphenous vein graft to the circumflex. s/p drug-eluting stent deployment for severe in-stent restenosis of the mid right coronary. s/p circumflex vessel drug-eluting stent to de alex mid circumflex stenosis. Left ventricular ejection fraction 50-55% on echocardiogram. Chronic renal failure Hypertension Diabetes mellitus Recommendations: Ambulate patient and monitor oximetry. Updated influenza and pneumonia vaccination, per patient Candidate for pulmonary rehabilitation, once on stable outpatient status. Outpatient pulmonary evaluation, PFT workup for COPD severity stratification Inhaler therapy including LAMA, LABA/ICS therapy, per GOLD guidelines. She uses Spiriva, recommended adding either Breo or Symbicort as an outpatient. Nutritional support. Discussed smoking cessation in detail. Subjective Date of service: 10/15/17 Principal diagnosis: dyspnea, COPD, respiratory failure Interval history: Patient reports no events overnight. Breathing appears to be better this morning Objective Vital Signs - 12hr 10/15/17 10/15/17 10/15/17 00:54 05:00 05:23 Temperature 97.6 F 97.6 F Pulse Rate 74 49 L 93 H Pulse Rate [ Anterior Bilateral Throughout] Respiratory 17 16 Rate Respiratory Rate [Anterior Bilateral Throughout] Blood Pressure 161/68 185/66 Blood Pressure [Left] O2 Sat by Pulse 96 99 Oximetry 10/15/17 10/15/17 10/15/17 07:30 07:40 08:57 Temperature 97.4 F L Pulse Rate 67 Pulse Rate [ 75 77 Anterior Bilateral Throughout] Respiratory 20 Rate Respiratory 18 18 Rate [Anterior Bilateral Throughout] Blood Pressure Blood Pressure 150/91 [Left] O2 Sat by Pulse 95 Oximetry 10/15/17 10/15/17 10/15/17 10:00 10:40 10:41 Temperature Pulse Rate Pulse Rate [ Anterior Bilateral Throughout] Respiratory Rate Respiratory Rate [Anterior Bilateral Throughout] Blood Pressure 150/91 150/91 Blood Pressure [Left] O2 Sat by Pulse 95 Oximetry Constitutional: no acute distress, alert Eyes: non-icteric ENT: oropharynx moist Neck: supple, no JVD Effort: normal Ascultation: Bilateral: clear, diminished breath sounds Percussion: Bilateral: not dull Tactile fremitus: Bilateral: normal Cardiovascular: regular rate and rhythm Gastrointestinal: normoactive bowel sounds Extremities: no cyanosis, no edema Neurologic: normal mental status, non-focal exam Psychiatric: mood appropriate CBC and BMP: 10/13/17 05:02 10/13/17 05:02 ABG, PT/INR, D-dimer: PT/INR, D-dimer PT 13.6 Sec. (12.2-14.9) 10/11/17 07:45 INR 0.99 (0.87-1.13) 10/11/17 07:45 Abnormal lab findings: Abnormal Labs 10/11/17 10/11/17 10/11/17 07:45 07:45 07:45 WBC RBC 3.53 L Hgb 9.1 L Hct 28.0 L MCH 26 L RDW 16.1 H Plt Count 132 L Lymph % (Auto) 5.6 L Lymph # 0.5 L Seg Neutrophils % 86.2 H APTT 24.1 L BUN 24 H Creatinine 1.6 H Glucose 228 H POC Glucose Calcium 7.9 L CK-MB (CK-2) Rel Index Troponin T 0.031 H NT-Pro-B Natriuret Pep Total Protein 5.7 L Albumin 2.7 L HDL Cholesterol 38 L 10/11/17 10/11/17 10/11/17 07:45 07:45 14:36 WBC RBC Hgb Hct MCH RDW Plt Count Lymph % (Auto) Lymph # Seg Neutrophils % APTT BUN Creatinine Glucose POC Glucose 351 H Calcium CK-MB (CK-2) Rel Index 4.7 H Troponin T NT-Pro-B Natriuret Pep 99699 H Total Protein Albumin HDL Cholesterol 10/11/17 10/11/17 10/11/17 17:21 19:48 19:56 WBC RBC Hgb Hct MCH RDW Plt Count Lymph % (Auto) Lymph # Seg Neutrophils % APTT BUN Creatinine Glucose POC Glucose 440 H > 500 H > 500 H Calcium CK-MB (CK-2) Rel Index Troponin T NT-Pro-B Natriuret Pep Total Protein Albumin HDL Cholesterol 10/11/17 10/12/17 10/12/17 22:20 08:52 11:59 WBC RBC Hgb Hct MCH RDW Plt Count Lymph % (Auto) Lymph # Seg Neutrophils % APTT BUN Creatinine Glucose POC Glucose > 500 H 410 H 404 H Calcium CK-MB (CK-2) Rel Index Troponin T NT-Pro-B Natriuret Pep Total Protein Albumin HDL Cholesterol 10/12/17 10/12/17 10/13/17 16:44 21:22 05:02 WBC 11.6 H RBC 3.52 L Hgb 9.0 L Hct 28.0 L MCH 26 L RDW 15.8 H Plt Count Lymph % (Auto) Lymph # Seg Neutrophils % APTT BUN Creatinine Glucose POC Glucose 393 H 371 H Calcium CK-MB (CK-2) Rel Index Troponin T NT-Pro-B Natriuret Pep Total Protein Albumin HDL Cholesterol 10/13/17 10/13/17 10/13/17 05:02 07:27 09:01 WBC RBC Hgb Hct MCH RDW Plt Count Lymph % (Auto) Lymph # Seg Neutrophils % APTT BUN 40 H Creatinine 1.8 H Glucose 254 H POC Glucose 251 H 310 H Calcium 7.7 L CK-MB (CK-2) Rel Index Troponin T NT-Pro-B Natriuret Pep Total Protein Albumin HDL Cholesterol 10/13/17 10/13/17 10/13/17 11:18 15:48 20:23 WBC RBC Hgb Hct MCH RDW Plt Count Lymph % (Auto) Lymph # Seg Neutrophils % APTT BUN Creatinine Glucose POC Glucose 386 H 415 H 387 H Calcium CK-MB (CK-2) Rel Index Troponin T NT-Pro-B Natriuret Pep Total Protein Albumin HDL Cholesterol 10/14/17 10/14/17 10/14/17 07:36 11:32 15:06 WBC RBC Hgb Hct MCH RDW Plt Count Lymph % (Auto) Lymph # Seg Neutrophils % APTT BUN Creatinine Glucose POC Glucose 148 H 318 H 482 H Calcium CK-MB (CK-2) Rel Index Troponin T NT-Pro-B Natriuret Pep Total Protein Albumin HDL Cholesterol 10/14/17 22:06 WBC RBC Hgb Hct MCH RDW Plt Count Lymph % (Auto) Lymph # Seg Neutrophils % APTT BUN Creatinine Glucose POC Glucose 338 H Calcium CK-MB (CK-2) Rel Index Troponin T NT-Pro-B Natriuret Pep Total Protein Albumin HDL Cholesterol
[2017-10-15] MEDS ORDERED: XANAX PO PRN (13:30)
[2017-10-15] MEDS ORDERED: NORCO 5/325 PO PRN (13:30)
--- NOTE | 2017-10-15 13:35 | Progress Note ---
Assessment and Plan Assessment and plan: Patient is a 72-year-old woman with a past medical history of chronic hypoxic respiratory failure due to COPD on 2 L home oxygen, DM2, diastolic HF, hypertension, CAD with history of CABG and cardiac stents who presented to the Emergency Department with shortness of breath. Acute on chronic respiratory failure with hypoxia due to COPD Patient oxygen saturation improved with 2LNC; currently SPO2 98%. No acute respiratory distress noted. Aggressive Nebulizers/Inhalers ABG when necessary Oxygen supplement Supportive care Elevated troponin related to demand Echocardiogram performed 09/23/2017 shows EF of 55-60% with LVH and mild evidence of pulmonary hypertension Closely monitor electrolytes Cardiology evaluated Acute COPD exacerbation Continue on Duoneb every 6 hours Started IV steroid Solumedrol abx Oxygen as necessary Hypertensive urgency Continue home antihypertensive medications Closely monitor blood pressure CKD Stage III Patient serum creatinine is 1.6; which is her baseline IV fluid hydration Repeat BMP Chronic anemia Stable at this time, transfusion related Closely monitor H&H Noncompliance Patient noncompliance with her steroid and Lasix. Counseled about the importance of adherence to medication and treatment Moderate malnutrition Nutrition consult DVT prophylaxis Heparin per [facility]: "Acute Hypoxic respiratory failure. Improved. No chest congestion at this time. COPD exacerbation- history of non-compliance with antibiotics, steroids Hx of CAD with 3v CABG. Per cardiology: LHC at [facility] 08/2017: Patent left internal mammary artery graft to the LAD. Patent saphenous vein graft to diagonal branch of LAD. Occluded saphenous vein graft to the circumflex. s/p drug-eluting stent deployment for severe in-stent restenosis of the mid right coronary. s/p circumflex vessel drug-eluting stent to de alex mid circumflex stenosis. Left ventricular ejection fraction 50-55% on echocardiogram. Chronic renal failure Hypertension Diabetes mellitus Recommendations: Ambulate patient and monitor oximetry. Updated influenza and pneumonia vaccination, per patient Candidate for pulmonary rehabilitation, once on stable outpatient status. Outpatient pulmonary evaluation, PFT workup for COPD severity stratification Inhaler therapy including LAMA, LABA/ICS therapy, per GOLD guidelines. She uses Spiriva, recommended adding either Breo or Symbicort as an outpatient. Nutritional support. Discussed smoking cessation in detail." History Interval history: Patient was seen and examined. Follow-up on current diagnosis. Overnight uneventful. Patient denies any chest pain, nausea/vomiting or severe headaches. Imaging, nursing note, chart, labs and old chart reviewed. Discussed with patient, still with sob especially with activity Hospitalist Physical - Physical exam Narrative exam: GEN: Chronic debilitated ill-appearing NAD, AWAKE, ALERT, ORIENTATED 3 HEENT: NCAT, EOMI, PERRL, OP Clear NECK: supple, no adenopathy, no thyromegaly, no JVD CVS/HEART: RRR, NORMAL S1S2, NO JVD, pulses present bilaterally CHEST/LUNGS: Bilateral rhonchi, reduced breath sounds Symmetrical chest expansion, diminished air entry bilaterally GI/Abdomen: soft, NTND, good bowel sounds, no guarding or rebound /Bladder: no suprapubic tenderness, no CVA or paraspinal tenderness EXT/Skin: no c/c/e, no obvious rash MSK: FROM x 4 Neuro: CN 2-12 grossly intact, no new focal deficits Psych: calm - Constitutional Vitals: Temp Pulse Resp BP Pulse Ox 97.4 F L 83 20 150/91 95 10/15/17 08:57 10/15/17 13:30 10/15/17 10:00 10/15/17 10:41 10/15/17 10:00 General appearance: Present: other (alert but very lethargic) Results - Labs CBC & Chem 7: 10/13/17 05:02 10/13/17 05:02 Labs: Laboratory Last Values WBC 11.6 K/mm3 (4.5-11.0) H 10/13/17 05:02 RBC 3.52 M/mm3 (3.65-5.03) L 10/13/17 05:02 Hgb 9.0 gm/dl (10.1-14.3) L 10/13/17 05:02 Hct 28.0 % (30.3-42.9) L 10/13/17 05:02 MCV 79 fl (79-97) 10/13/17 05:02 MCH 26 pg (28-32) L 10/13/17 05:02 MCHC 32 % (30-34) 10/13/17 05:02 RDW 15.8 % (13.2-15.2) H 10/13/17 05:02 Plt Count 171 K/mm3 (140-440) 10/13/17 05:02 Lymph % (Auto) 5.6 % (13.4-35.0) L 10/11/17 07:45 [place] % (Auto) 6.4 % (0.0-7.3) 10/11/17 07:45 Eos % (Auto) 1.1 % (0.0-4.3) 10/11/17 07:45 Baso % (Auto) 0.7 % (0.0-1.8) 10/11/17 07:45 Lymph # 0.5 K/mm3 (1.2-5.4) L 10/11/17 07:45 [place] # 0.5 K/mm3 (0.0-0.8) 10/11/17 07:45 Eos # 0.1 K/mm3 (0.0-0.4) 10/11/17 07:45 Baso # 0.1 K/mm3 (0.0-0.1) 10/11/17 07:45 Seg Neutrophils % 86.2 % (40.0-70.0) H 10/11/17 07:45 Seg Neutrophils # 7.2 K/mm3 (1.8-7.7) 10/11/17 07:45 PT 13.6 Sec. (12.2-14.9) 10/11/17 07:45 INR 0.99 (0.87-1.13) 10/11/17 07:45 APTT 24.1 Sec. (24.2-36.6) L 10/11/17 07:45 Sodium 140 mmol/L (137-145) 10/13/17 05:02 Potassium 4.0 mmol/L (3.6-5.0) 10/13/17 05:02 Chloride 100.7 mmol/L (98-107) 10/13/17 05:02 Carbon Dioxide 23 mmol/L (22-30) 10/13/17 05:02 Anion Gap 20 mmol/L 10/13/17 05:02 BUN 40 mg/dL (7-17) H 10/13/17 05:02 Creatinine 1.8 mg/dL (0.7-1.2) H 10/13/17 05:02 Estimated GFR 28 ml/min 10/13/17 05:02 BUN/Creatinine Ratio 22 % 10/13/17 05:02 Glucose 254 mg/dL (65-100) H 10/13/17 05:02 POC Glucose 338 (70-105) H 10/14/17 22:06 Calcium 7.7 mg/dL (8.4-10.2) L 10/13/17 05:02 Total Bilirubin 0.30 mg/dL (0.1-1.2) 10/11/17 07:45 AST 10 units/L (5-40) 10/11/17 07:45 ALT 9 units/L (7-56) 10/11/17 07:45 Alkaline Phosphatase 110 units/L (35-129) 10/11/17 07:45 Total Creatine Kinase 34 units/L (30-135) 10/11/17 07:45 CK-MB (CK-2) 1.6 ng/mL (0.0-4.0) 10/11/17 07:45 CK-MB (CK-2) Rel Index 4.7 (0-4) H 10/11/17 07:45 Troponin T 0.014 ng/mL (0.00-0.029) 10/11/17 13:08 NT-Pro-B Natriuret Pep 29406 pg/mL (0-900) H 10/11/17 07:45 Total Protein 5.7 g/dL (6.3-8.2) L 10/11/17 07:45 Albumin 2.7 g/dL (3.9-5) L 10/11/17 07:45 Albumin/Globulin Ratio 0.9 % 10/11/17 07:45 Triglycerides 139 mg/dL (2-149) 10/11/17 07:45 Cholesterol 166 mg/dL (50-199) 10/11/17 07:45 LDL Cholesterol Direct 101 mg/dL (50-130) 10/11/17 07:45 HDL Cholesterol 38 mg/dL (40-59) L 10/11/17 07:45 Cholesterol/HDL Ratio 4.36 % 10/11/17 07:45
[2017-10-16] MEDS: NOVOLOG SUB-Q SCH ×2 (08:55→14:53)
[2017-10-16] MEDS: LEVEMIR SUB-Q SCH (09:21)
[2017-10-16] MEDS ORDERED: ZITHROMAX PO SCH (10:00)
[2017-10-16] MEDS: DUONEB *Not for PRN Use IH SCH ×2 (10:05→15:31)
--- NOTE | 2017-10-16 11:38 | Progress Note ---
Assessment and Plan Acute Hypoxic respiratory failure Exam findings are consistent with COPD exacerbation Patient has chronically elevated NT-proBNP secondary to renal failure and RV strain (no pulmonary edema on CXR) Non-compliance with Abx, steroids and inhalers Hx of CAD with 3v CABG LHC at [facility] 08/2017: Patent left internal mammary artery graft to the LAD. Patent saphenous vein graft to diagonal branch of LAD. Occluded saphenous vein graft to the circumflex. s/p drug-eluting stent deployment for severe in-stent restenosis of the mid right coronary. s/p circumflex vessel drug-eluting stent to de alex mid circumflex stenosis. Left ventricular ejection fraction 50-55% on echocardiogram. Chronic renal failure Hypertension Diabetes mellitus Tobacco abuse Recommendations: Advised smoking cessation. Continue medical therapy for coronary artery disease including aspirin and Plavix therapy without interruption. Pulmonary evaluation and management Subjective Date of service: 10/16/17 Principal diagnosis: dyspnea, COPD, respiratory failure Interval history: Patient is lying in bed comfortable and in no acute distress. She denies chest pain Objective Vital Signs Temp Pulse Pulse Resp Resp BP Pulse Ox 10/16/17 08:04 70 100 10/16/17 08:03 98.6 F 81 18 174/76 100 10/16/17 05:51 98.0 F 79 20 171/77 100 10/16/17 05:11 81 10/15/17 23:51 98.3 F 91 H 18 157/71 99 10/15/17 20:15 97.7 F 80 18 116/44 98 10/15/17 19:46 72 18 10/15/17 19:30 65 18 10/15/17 19:29 98 10/15/17 16:00 98.0 F 78 20 140/71 98 10/15/17 13:30 83 10/15/17 12:14 68 131/55 98 - Physical Examination General: No Apparent Distress HEENT: Positive: Pallor Neck: Positive: neck supple. Negative: JVD/HJR Cardiac: Positive: Reg Rate and Rhythm Lungs: Positive: Wheezes Neuro: Positive: Grossly Intact Abdomen: Positive: Soft Extremities: Absent: edema
[2017-10-16] MEDS: IMDUR PO SCH (12:01)
[2017-10-16] MEDS: COREG PO SCH (12:01)
[2017-10-16] MEDS: LOVENOX SUB-Q SCH (12:01)
[2017-10-16] MEDS: DELTASONE PO SCH (12:01)
[2017-10-16] MEDS: PLAVIX PO SCH (12:02)
[2017-10-16] MEDS: BABY ASPIRIN PO SCH (12:02)
[2017-10-16] MEDS: LASIX PO SCH (12:02)
--- NOTE | 2017-10-16 12:51 | Progress Note ---
Assessment and Plan Acute Hypoxic respiratory failure. Controlled COPD exacerbation-Controlled. On nebs plus oxygen Hx of CAD with 3v CABG. Left ventricular ejection fraction 50-55% on echocardiogram. Chronic renal failure Hypertension Diabetes mellitus Recommendations: Scheduled to go to rehab. Ambulate patient and monitor oximetry. Updated influenza and pneumonia vaccination, per patient Candidate for pulmonary rehabilitation, once on stable outpatient status. Outpatient pulmonary evaluation, PFT workup for COPD severity stratification Inhaler therapy including LAMA, LABA/ICS therapy, per GOLD guidelines. Recommend Spiriva,plus either Breo or Symbicort Nutritional support. Discussed smoking cessation in detail. Discussed with the pt. Will sign off Subjective Date of service: 10/16/17 Principal diagnosis: dyspnea, COPD, respiratory failure Objective Vital Signs - 12hr 10/16/17 10/16/17 10/16/17 05:11 05:51 08:03 Temperature 98.0 F 98.6 F Pulse Rate 81 79 81 Respiratory 20 18 Rate Blood Pressure 171/77 174/76 O2 Sat by Pulse 100 100 Oximetry 10/16/17 08:04 Temperature Pulse Rate 70 Respiratory Rate Blood Pressure O2 Sat by Pulse 100 Oximetry Constitutional: no acute distress, alert Eyes: non-icteric ENT: oropharynx moist Neck: supple, no JVD Effort: normal Ascultation: Bilateral: clear, diminished breath sounds Percussion: Bilateral: not dull Tactile fremitus: Bilateral: normal Cardiovascular: regular rate and rhythm Gastrointestinal: normoactive bowel sounds Extremities: no cyanosis, no edema Neurologic: normal mental status, non-focal exam Psychiatric: mood appropriate CBC and BMP: 10/13/17 05:02 10/13/17 05:02 ABG, PT/INR, D-dimer: PT/INR, D-dimer PT 13.6 Sec. (12.2-14.9) 10/11/17 07:45 INR 0.99 (0.87-1.13) 10/11/17 07:45 Abnormal lab findings: Abnormal Labs 10/11/17 10/11/17 10/11/17 07:45 07:45 07:45 WBC RBC 3.53 L Hgb 9.1 L Hct 28.0 L MCH 26 L RDW 16.1 H Plt Count 132 L Lymph % (Auto) 5.6 L Lymph # 0.5 L Seg Neutrophils % 86.2 H APTT 24.1 L BUN 24 H Creatinine 1.6 H Glucose 228 H POC Glucose Calcium 7.9 L CK-MB (CK-2) Rel Index Troponin T 0.031 H NT-Pro-B Natriuret Pep Total Protein 5.7 L Albumin 2.7 L HDL Cholesterol 38 L 10/11/17 10/11/17 10/11/17 07:45 07:45 14:36 WBC RBC Hgb Hct MCH RDW Plt Count Lymph % (Auto) Lymph # Seg Neutrophils % APTT BUN Creatinine Glucose POC Glucose 351 H Calcium CK-MB (CK-2) Rel Index 4.7 H Troponin T NT-Pro-B Natriuret Pep 11924 H Total Protein Albumin HDL Cholesterol 10/11/17 10/11/17 10/11/17 17:21 19:48 19:56 WBC RBC Hgb Hct MCH RDW Plt Count Lymph % (Auto) Lymph # Seg Neutrophils % APTT BUN Creatinine Glucose POC Glucose 440 H > 500 H > 500 H Calcium CK-MB (CK-2) Rel Index Troponin T NT-Pro-B Natriuret Pep Total Protein Albumin HDL Cholesterol 10/11/17 10/12/17 10/12/17 22:20 08:52 11:59 WBC RBC Hgb Hct MCH RDW Plt Count Lymph % (Auto) Lymph # Seg Neutrophils % APTT BUN Creatinine Glucose POC Glucose > 500 H 410 H 404 H Calcium CK-MB (CK-2) Rel Index Troponin T NT-Pro-B Natriuret Pep Total Protein Albumin HDL Cholesterol 10/12/17 10/12/17 10/13/17 16:44 21:22 05:02 WBC 11.6 H RBC 3.52 L Hgb 9.0 L Hct 28.0 L MCH 26 L RDW 15.8 H Plt Count Lymph % (Auto) Lymph # Seg Neutrophils % APTT BUN Creatinine Glucose POC Glucose 393 H 371 H Calcium CK-MB (CK-2) Rel Index Troponin T NT-Pro-B Natriuret Pep Total Protein Albumin HDL Cholesterol 10/13/17 10/13/17 10/13/17 05:02 07:27 09:01 WBC RBC Hgb Hct MCH RDW Plt Count Lymph % (Auto) Lymph # Seg Neutrophils % APTT BUN 40 H Creatinine 1.8 H Glucose 254 H POC Glucose 251 H 310 H Calcium 7.7 L CK-MB (CK-2) Rel Index Troponin T NT-Pro-B Natriuret Pep Total Protein Albumin HDL Cholesterol 10/13/17 10/13/17 10/13/17 11:18 15:48 20:23 WBC RBC Hgb Hct MCH RDW Plt Count Lymph % (Auto) Lymph # Seg Neutrophils % APTT BUN Creatinine Glucose POC Glucose 386 H 415 H 387 H Calcium CK-MB (CK-2) Rel Index Troponin T NT-Pro-B Natriuret Pep Total Protein Albumin HDL Cholesterol 10/14/17 10/14/17 10/14/17 07:36 11:32 15:06 WBC RBC Hgb Hct MCH RDW Plt Count Lymph % (Auto) Lymph # Seg Neutrophils % APTT BUN Creatinine Glucose POC Glucose 148 H 318 H 482 H Calcium CK-MB (CK-2) Rel Index Troponin T NT-Pro-B Natriuret Pep Total Protein Albumin HDL Cholesterol 10/14/17 10/15/17 10/15/17 22:06 07:39 12:17 WBC RBC Hgb Hct MCH RDW Plt Count Lymph % (Auto) Lymph # Seg Neutrophils % APTT BUN Creatinine Glucose POC Glucose 338 H 188 H 290 H Calcium CK-MB (CK-2) Rel Index Troponin T NT-Pro-B Natriuret Pep Total Protein Albumin HDL Cholesterol 10/15/17 10/15/17 16:04 21:46 WBC RBC Hgb Hct MCH RDW Plt Count Lymph % (Auto) Lymph # Seg Neutrophils % APTT BUN Creatinine Glucose POC Glucose 268 H 437 H Calcium CK-MB (CK-2) Rel Index Troponin T NT-Pro-B Natriuret Pep Total Protein Albumin HDL Cholesterol
[2017-10-16 13:03] VITALS: BP 140/65
--- NOTE | 2017-10-16 14:14 | Progress Note ---
Assessment and Plan Assessment and plan: Patient is a 72-year-old woman with a past medical history of chronic hypoxic respiratory failure due to COPD on 2 L home oxygen, DM2, diastolic HF, hypertension and CAD with history of CABG who presented to the Emergency Department with shortness of breath. Acute on chronic respiratory failure with hypoxia due to COPD Patient oxygen saturation improved with 2LNC; currently SPO2 98%. No acute respiratory distress noted. Aggressive Nebulizers/Inhalers ABG when necessary Oxygen supplement Supportive care Elevated troponin related to demand Echocardiogram performed 09/23/2017 shows EF of 55-60% with LVH and mild evidence of pulmonary hypertension Closely monitor electrolytes Cardiology evaluated Acute COPD exacerbation Continue on Duoneb every 6 hours Started IV steroid Solumedrol abx Oxygen as necessary Hypertensive urgency Continue home antihypertensive medications Closely monitor blood pressure CKD Stage III Patient serum creatinine is 1.6; which is her baseline IV fluid hydration Repeat BMP Chronic anemia Stable at this time, transfusion related Closely monitor H&H Noncompliance Patient noncompliance with her steroid and Lasix. Counseled about the importance of adherence to medication and treatment Moderate malnutrition Nutrition consult DVT prophylaxis Heparin per Steel Die Printer: "Acute Hypoxic respiratory failure. Improved. No chest congestion at this time. COPD exacerbation- history of non-compliance with antibiotics, steroids Hx of CAD with 3v CABG. Per cardiology: LHC at [facility] 08/2017: Patent left internal mammary artery graft to the LAD. Patent saphenous vein graft to diagonal branch of LAD. Occluded saphenous vein graft to the circumflex. s/p drug-eluting stent deployment for severe in-stent restenosis of the mid right coronary. s/p circumflex vessel drug-eluting stent to de alex mid circumflex stenosis. Left ventricular ejection fraction 50-55% on echocardiogram. Chronic renal failure Hypertension Diabetes mellitus Recommendations: Ambulate patient and monitor oximetry. Updated influenza and pneumonia vaccination, per patient Candidate for pulmonary rehabilitation, once on stable outpatient status. Outpatient pulmonary evaluation, PFT workup for COPD severity stratification Inhaler therapy including LAMA, LABA/ICS therapy, per GOLD guidelines. She uses Spiriva, recommended adding either Breo or Symbicort as an outpatient. Nutritional support. Discussed smoking cessation in detail." 10/16/17: Her function is severely limited, she declined hospice care but has accepted rehab placement. Her breathing is probably optimized and Pulmonology has signed off today. Awaiting SNF placement. History Interval history: Patient was seen and examined. Follow-up on current diagnosis. Overnight uneventful. Patient denies any chest pain, nausea/vomiting or severe headaches. Imaging, nursing note, chart, labs and old chart reviewed. Discussed with patient, still with sob especially with activity Hospitalist Physical - Physical exam Narrative exam: GEN: Chronic debilitated ill-appearing NAD, AWAKE, ALERT, ORIENTATED 3 HEENT: NCAT, EOMI, PERRL, OP Clear NECK: supple, no adenopathy, no thyromegaly, no JVD CVS/HEART: RRR, NORMAL S1S2, NO JVD, pulses present bilaterally CHEST/LUNGS: Bilateral rhonchi, reduced breath sounds Symmetrical chest expansion, diminished air entry bilaterally GI/Abdomen: soft, NTND, good bowel sounds, no guarding or rebound /Bladder: no suprapubic tenderness, no CVA or paraspinal tenderness EXT/Skin: no c/c/e, no obvious rash MSK: FROM x 4 Neuro: CN 2-12 grossly intact, no new focal deficits Psych: calm - Constitutional Vitals: Temp Pulse Resp BP Pulse Ox 98.3 F 69 20 140/65 98 10/16/17 13:02 10/16/17 13:02 10/16/17 13:02 10/16/17 13:02 10/16/17 13:02 General appearance: Present: other (alert but very lethargic) Results - Labs CBC & Chem 7: 10/13/17 05:02 10/13/17 05:02 Labs: Laboratory Last Values WBC 11.6 K/mm3 (4.5-11.0) H 10/13/17 05:02 RBC 3.52 M/mm3 (3.65-5.03) L 10/13/17 05:02 Hgb 9.0 gm/dl (10.1-14.3) L 10/13/17 05:02 Hct 28.0 % (30.3-42.9) L 10/13/17 05:02 MCV 79 fl (79-97) 10/13/17 05:02 MCH 26 pg (28-32) L 10/13/17 05:02 MCHC 32 % (30-34) 10/13/17 05:02 RDW 15.8 % (13.2-15.2) H 10/13/17 05:02 Plt Count 171 K/mm3 (140-440) 10/13/17 05:02 Lymph % (Auto) 5.6 % (13.4-35.0) L 10/11/17 07:45 [place] % (Auto) 6.4 % (0.0-7.3) 10/11/17 07:45 Eos % (Auto) 1.1 % (0.0-4.3) 10/11/17 07:45 Baso % (Auto) 0.7 % (0.0-1.8) 10/11/17 07:45 Lymph # 0.5 K/mm3 (1.2-5.4) L 10/11/17 07:45 [place] # 0.5 K/mm3 (0.0-0.8) 10/11/17 07:45 Eos # 0.1 K/mm3 (0.0-0.4) 10/11/17 07:45 Baso # 0.1 K/mm3 (0.0-0.1) 10/11/17 07:45 Seg Neutrophils % 86.2 % (40.0-70.0) H 10/11/17 07:45 Seg Neutrophils # 7.2 K/mm3 (1.8-7.7) 10/11/17 07:45 PT 13.6 Sec. (12.2-14.9) 10/11/17 07:45 INR 0.99 (0.87-1.13) 10/11/17 07:45 APTT 24.1 Sec. (24.2-36.6) L 10/11/17 07:45 Sodium 140 mmol/L (137-145) 10/13/17 05:02 Potassium 4.0 mmol/L (3.6-5.0) 10/13/17 05:02 Chloride 100.7 mmol/L (98-107) 10/13/17 05:02 Carbon Dioxide 23 mmol/L (22-30) 10/13/17 05:02 Anion Gap 20 mmol/L 10/13/17 05:02 BUN 40 mg/dL (7-17) H 10/13/17 05:02 Creatinine 1.8 mg/dL (0.7-1.2) H 10/13/17 05:02 Estimated GFR 28 ml/min 10/13/17 05:02 BUN/Creatinine Ratio 22 % 10/13/17 05:02 Glucose 254 mg/dL (65-100) H 10/13/17 05:02 POC Glucose 437 (70-105) H 10/15/17 21:46 Calcium 7.7 mg/dL (8.4-10.2) L 10/13/17 05:02 Total Bilirubin 0.30 mg/dL (0.1-1.2) 10/11/17 07:45 AST 10 units/L (5-40) 10/11/17 07:45 ALT 9 units/L (7-56) 10/11/17 07:45 Alkaline Phosphatase 110 units/L (35-129) 10/11/17 07:45 Total Creatine Kinase 34 units/L (30-135) 10/11/17 07:45 CK-MB (CK-2) 1.6 ng/mL (0.0-4.0) 10/11/17 07:45 CK-MB (CK-2) Rel Index 4.7 (0-4) H 10/11/17 07:45 Troponin T 0.014 ng/mL (0.00-0.029) 10/11/17 13:08 NT-Pro-B Natriuret Pep 29533 pg/mL (0-900) H 10/11/17 07:45 Total Protein 5.7 g/dL (6.3-8.2) L 10/11/17 07:45 Albumin 2.7 g/dL (3.9-5) L 10/11/17 07:45 Albumin/Globulin Ratio 0.9 % 10/11/17 07:45 Triglycerides 139 mg/dL (2-149) 10/11/17 07:45 Cholesterol 166 mg/dL (50-199) 10/11/17 07:45 LDL Cholesterol Direct 101 mg/dL (50-130) 10/11/17 07:45 HDL Cholesterol 38 mg/dL (40-59) L 10/11/17 07:45 Cholesterol/HDL Ratio 4.36 % 10/11/17 07:45
--- NOTE | 2017-10-16 14:43 | Discharge Summary ---
Providers - Providers Date of Admission: 10/11/17 10:11 Date of discharge: 10/16/17 Attending physician: YENNI JEFFERSON 10/11/17 10:45 Consult to Physician [CONS] Routine Consulting Provider: ORLANDO WEI Reason For Exam: Elevated troponin Notified:: Y 10/11/17 15:15 Consult to Dietitian/Nutrition [CONS] Routine Physician Instructions: Reason For Exam: Reason for Consult: Malnutrition 10/11/17 19:59 Consult to Dietitian/Nutrition [CONS] Routine Physician Instructions: Reason For Exam: Reason for Consult: Diet education 10/12/17 12:52 Consult to Physician [CONS] Routine Consulting Provider: GIANNA FAIR Reason For Exam: copd, patient known to you Place consult to:: Dr. Fair Notified:: Cassandra CORRALES Phone number called:: Was contact made?: Yes If yes, spoke with:: [employer] [facility] Time called:: 13:02 10/15/17 16:28 Occupational Therapy Evaluate and Treat [CONS] Routine Comment: Reason For Exam: EVAL & TREAT/ DISCHARGED DISPOSITION 10/15/17 16:29 Physical Therapy Evaluation and Treat [CONS] Routine Comment: Reason For Exam: EVAL & TREAT/DISCHARGE NEEDS Primary care physician: DERIC MANDEL Hospitalization Condition: Stable Hospital course: Patient is a 72-year-old woman with a past medical history of chronic hypoxic respiratory failure due to COPD on 2 L home oxygen, DM2, diastolic HF, hypertension and CAD with history of CABG who presented to the Emergency Department with shortness of breath. Acute on chronic respiratory failure with hypoxia due to COPD Patient oxygen saturation improved with 2LNC; currently SPO2 98%. No acute respiratory distress noted. Aggressive Nebulizers/Inhalers ABG when necessary Oxygen supplement Supportive care Elevated troponin related to demand Echocardiogram performed 09/23/2017 shows EF of 55-60% with LVH and mild evidence of pulmonary hypertension Closely monitor electrolytes Cardiology evaluated Acute COPD exacerbation Continue on Duoneb every 6 hours Started IV steroid Solumedrol abx Oxygen as necessary Hypertensive urgency Continue home antihypertensive medications Closely monitor blood pressure CKD Stage III Patient serum creatinine is 1.6; which is her baseline IV fluid hydration Repeat BMP Chronic anemia Stable at this time, transfusion related Closely monitor H&H Noncompliance Patient noncompliance with her steroid and Lasix. Counseled about the importance of adherence to medication and treatment Moderate malnutrition Nutrition consult DVT prophylaxis Heparin per Chief Electrician: "Acute Hypoxic respiratory failure. Improved. No chest congestion at this time. COPD exacerbation- history of non-compliance with antibiotics, steroids Hx of CAD with 3v CABG. Per cardiology: LHC at [facility] 08/2017: Patent left internal mammary artery graft to the LAD. Patent saphenous vein graft to diagonal branch of LAD. Occluded saphenous vein graft to the circumflex. s/p drug-eluting stent deployment for severe in-stent restenosis of the mid right coronary. s/p circumflex vessel drug-eluting stent to de alex mid circumflex stenosis. Left ventricular ejection fraction 50-55% on echocardiogram. Chronic renal failure Hypertension Diabetes mellitus Recommendations: Ambulate patient and monitor oximetry. Updated influenza and pneumonia vaccination, per patient Candidate for pulmonary rehabilitation, once on stable outpatient status. Outpatient pulmonary evaluation, PFT workup for COPD severity stratification Inhaler therapy including LAMA, LABA/ICS therapy, per GOLD guidelines. She uses Spiriva, recommended adding either Breo or Symbicort as an outpatient. Nutritional support. Discussed smoking cessation in detail." 10/16/17: Her function is severely limited, she declined hospice care but has accepted rehab placement. Her breathing is probably optimized and Pulmonology has signed off today. Awaiting SNF placement. hyperglycemia, I increased her levemir. Medical stable for discharge to [facility] once bed is available. Disposition: DC/-03 SNF W [facility] CERT Time spent for discharge: 37 minutes Core Measure Documentation - Palliative Care Palliative Care/ Comfort Measures: Not Applicable - Core Measures Any of the following diagnoses?: none - VTE Discharge Requirements Deep Vein Thrombosis/Pulmonary Embolism Present on Admission: No Has pt received <5 days of overlap therapy or INR<2.0: No Anticoagulant overlap therapy prescribed at discharge: No Contraindication No Overlap Therapy order at DC: Not Indicated Exam - Physical Exam Narrative exam: GEN: Chronic debilitated ill-appearing NAD, AWAKE, ALERT, ORIENTATED 3 HEENT: NCAT, EOMI, PERRL, OP Clear NECK: supple, no adenopathy, no thyromegaly, no JVD CVS/HEART: RRR, NORMAL S1S2, NO JVD, pulses present bilaterally CHEST/LUNGS: Bilateral rhonchi, reduced breath sounds Symmetrical chest expansion, diminished air entry bilaterally GI/Abdomen: soft, NTND, good bowel sounds, no guarding or rebound /Bladder: no suprapubic tenderness, no CVA or paraspinal tenderness EXT/Skin: no c/c/e, no obvious rash MSK: FROM x 4 Neuro: CN 2-12 grossly intact, no new focal deficits Psych: calm - Constitutional Vitals: Temp Pulse Resp BP Pulse Ox 98.3 F 69 20 140/65 98 10/16/17 13:02 10/16/17 13:02 10/16/17 13:02 10/16/17 13:02 10/16/17 13:02 Plan Activity: up only with assistance, fall precautions Diet: low salt, diabetic Special Instructions: record blood sugar diary (tidac) Durable Medical Equipment Needed Upon Discharge: Walker-Standard, Oxygen Follow up with: DERIC MANDEL MD [Primary Care Provider] - 7 Days Prescriptions: predniSONE [Deltasone] 10 mg PO .TAPER #21 tab
[2017-10-16] MEDS ORDERED: LEVEMIR SUB-Q SCH (22:00)
== END 2017-10-16 19:30 | DRG 189 ==
LOC: ED 06:27 → 4A 10:11
PROVIDERS: ADMIT Internal Medicine; ATTEND Internal Medicine
DX: J96.21 Acute and chronic respiratory failure with hypoxia (principal); J44.1 Chronic obstructive pulmonary disease with (acute) exacerbation; I50.32 Chronic diastolic (congestive) heart failure; I13.0 Hypertensive heart and chronic kidney disease with heart failure and stage 1 through stage 4 chronic kidney disease, or unspecified chronic kidney disease; E44.0 Moderate protein-calorie malnutrition; I16.0 Hypertensive urgency; N18.3 Chronic kidney disease, stage 3 (moderate); I25.10 Atherosclerotic heart disease of native coronary artery without angina pectoris; D64.9 Anemia, unspecified; I27.20 Pulmonary hypertension, unspecified; E11.22 Type 2 diabetes mellitus with diabetic chronic kidney disease; Z95.1 Presence of aortocoronary bypass graft; Z99.81 Dependence on supplemental oxygen; Z88.8 Allergy status to other drugs, medicaments and biological substances; Z91.19 Patient's noncompliance with other medical treatment and regimen; Z79.82 Long term (current) use of aspirin; Z79.899 Other long term (current) drug therapy; I25.2 Old myocardial infarction; Z95.5 Presence of coronary angioplasty implant and graft; Z82.49 Family history of ischemic heart disease and other diseases of the circulatory system; Z68.30 Body mass index [BMI] 30.0-30.9, adult
CPT/HCPCS: 36415; 71010; 80048; 80053; 80061; 82550; 82553; 82962; 83880; 84484; 85025; 85027; 85610; 85730; 93005; 93010; 94640; 94760; 96372; 96374; 96375; G8978-GP; G8979-GP; J0456; J1650; J1815; J1818; J2930; J3475; J7030; J7050; J7512